=== PATIENT | male | born 1940 | race American Indian/Alaskan Native ===

== ENCOUNTER 2021-05-24 21:09 | Inpatient (IN) | payer MEDICARE ==
[2021-05-24] MEDS ORDERED: KETAMINE 500 MG/5 ML VIAL MDV ONE ×2 (21:15→21:47)
[2021-05-24] MEDS ORDERED: ROCURONIUM 50 MG/5 ML INJ IV ONE (21:16)
[2021-05-24] MEDS ORDERED: fentaNYL DRIP Premix 2,000 MCG/100 ML BAG IV ONE (21:21)
[2021-05-24] MEDS ORDERED: fentaNYL 100 MCG/2 ML INJ IV PRN (21:28)
[2021-05-24] MEDS ORDERED: SODIUM CHLORIDE 0.9% 1000 ML 1,000 ML IV ONE (21:28)
[2021-05-24] MEDS ORDERED: MIDAZOLAM 2 MG/2 ML INJ IV PRN (21:28)
[2021-05-24] MEDS ORDERED: KETAMINE 500 MG/5 ML VIAL MDV IV ONE (21:28)
[2021-05-24] MEDS ORDERED: MINERAL OIL/PETROLATUM, WHITE OPHTH OINT 3.5 GM OU PRN (21:28)
[2021-05-24] MEDS ORDERED: LIP THERAPY VASELINE TP PRN (21:28)
[2021-05-24] MEDS ORDERED: dexAMETHasone 4 MG/ML VIAL IV ONE (21:31)
[2021-05-24] MEDS ORDERED: LACTATED RINGERS 1,000 ML IV ONE ×3 (21:31→23:01)
[2021-05-24] MEDS ORDERED: cefTRIAXone/NS 1 GM/50 ML 1 GM/50 ML BAG IV ONE (21:31)
--- NOTE | 2021-05-24 21:34 | Emergency Department Report ---
ED General Adult HPI - General Chief complaint: Altered Mental Status Stated complaint: UNRESPONSIVE PUI?: Yes Time Seen by Provider: 05/24/21 21:27 Source: EMS (Verbal report received from emergency medical services. EMS documentation not available at time of chart dictation ), RN notes reviewed Mode of arrival: Stretcher - History of Present Illness Initial comments: The patient was evaluated in the emergency department for symptoms described in the history of present illness. He/she was evaluated in the context of the global COVID-19 pandemic, which necessitated consideration that the patient might be at risk for infection with the virus that causes COVID-19. Institutional protocols and algorithms that pertain to the evaluation of patients at risk for COVID-19 are in a state of rapid change based on information released by regulatory bodies including the CDC and federal and state organizations. These policies and algorithms were followed during the patient's care in the emergency department. Please note that these policies, procedures and recommendations changed on a rapid basis. The patient is a 80-year-old gentleman. He is not known to myself previously. He is brought to the hospital today by emergency medical services, with an EMS articulated complaint of altered mental status and respiratory failure. History obtained entirely from EMS as the patient is altered, and presents with acute respiratory failure. EMS arrives with discharge instructions/discharge paperwork from this patient, from the [facility]. Discharge diagnoses include urinary tract infection, and Lewy body dementia. Also has history of hypertension, and type II NSTEMI. The patient had a negative CT scan of the brain April 23, 2021, and also had CT angiogram of the head and neck which did not demonstrate significant large vessel occlusion. The patient also had a negative COVID-19 test. Discharge medications include allopurinol, atorvastatin, losartan, multivitamin, and metoprolol. The patient does not arrive with advanced directives or goals of care elucidated on his paperwork. He is furthermore not accompanied by friends or family at this time for collateral information or additional information. EMS reports normal Accu-Chek in the field. Upon arrival to this emergency room, the patient is in respiratory failure, and is not protecting his airway. The patient is intubated by myself. Please see procedure note. Patient not able to describe the qualitative nature of symptoms, exacerbating factors, relieving factors, or aggravating factors. Patient not accompanied by friends or family at this time for collateral information or additional information. No additional history is available at this time. -: unknown Quality: other Consistency: other Improves with: other Worsens with: other Associated Symptoms: other - Related Data Allergies Allergy/AdvReac Type Severity Reaction Status Date / Time No Known Allergies Allergy Verified 05/24/21 21:45 ED Review of Systems ROS: Stated complaint: UNRESPONSIVE Other details as noted in HPI Comment: Unobtainable due to pts medical conditions ED Physical Exam - General Limitations: Altered Mental Status General appearance: obtunded - Head Head exam: Present: atraumatic, normocephalic - Eye Eye exam: Present: normal appearance, EOMI - ENT ENT exam: Present: normal orophraynx, mucous membranes moist, normal external ear exam, other (Secretions noted in) - Neck Neck exam: Present: normal inspection. Absent: tenderness, meningismus - Respiratory Respiratory exam: Present: respiratory distress, decreased breath sounds. Absent: stridor - Cardiovascular Cardiovascular Exam: Present: regular rate, normal rhythm, normal heart sounds. Absent: bradycardia, tachycardia, irregular rhythm, systolic murmur, diastolic murmur, rubs, gallop - GI/Abdominal GI/Abdominal exam: Present: soft, hernia (There is a large right-sided inguinal hernia). Absent: distended, tenderness, guarding, rebound, rigid - Rectal Rectal exam: Present: normal inspection - exam: Absent: normal inspection (Right-sided inguinal hernia extending into the scrotum) - Extremities Exam Extremities exam: Present: normal inspection, other (2+ pulses noted in the bilateral femoral arteries, and bilateral radial artery). Absent: tenderness, pedal edema, calf tenderness - Back Exam Back exam: Present: normal inspection. Absent: tenderness, CVA tenderness (R), CVA tenderness (L), paraspinal tenderness, vertebral tenderness - Neurological Exam Neurological exam: Present: altered, other (Prior to intubation, patient moving 4 extremities. The patient is nonverbal) - Skin Skin exam: Present: warm, dry, intact, normal color. Absent: rash ED Course Vital Signs 05/24/21 05/24/21 05/24/21 21:22 21:27 21:31 Temperature 96.7 F L Pulse Rate 89 95 H 91 H Respiratory 17 22 18 Rate Blood Pressure 102/70 78/53 O2 Sat by Pulse 76 L 96 Oximetry 05/24/21 05/24/21 05/24/21 21:45 22:01 22:15 Temperature Pulse Rate 93 H 84 71 Respiratory 19 20 17 Rate Blood Pressure 82/55 80/47 94/57 O2 Sat by Pulse 86 100 Oximetry 05/24/21 05/24/21 22:45 22:50 Temperature Pulse Rate 81 Respiratory 20 Rate Blood Pressure 68/43 O2 Sat by Pulse 85 97 Oximetry - Reevaluation(s) Reevaluation #1: 05/24/21 22:18 Differential diagnosis, including but not limited to: Pneumonia, urinary tract infection, COVID-19, respiratory failure, toxic encephalopathy, metabolic encephalopathy Assessment and plan: 80-year-old gentleman with encephalopathy, last known well time not known, had CT angiogram of the head and neck within the past month, which was negative for large vessel occlusion, moving 4 extremities prior to intubation, saturating at 70s prior to intubation, with acute respiratory failure. Patient now intubated and sedated. Laboratory studies pending. Noncontrast CT scan of the brain, CT scan of the chest pending. Place patient on isolation. Continue fluids, start antibiotics, and steroids empirically. Admit the patient to the critical care unit once his initial diagnostics have resulted. Long-term prognosis is guarded 05/24/21 22:39 Laboratory studies demonstrate lactic acidosis, elevated CK, elevated sodium/hypernatremia, elevated troponin, likely type II troponin leak, renal insufficiency, and hyperchloremia. Patient is most likely very volume depleted. He will continue to receive IV fluids. We will discuss with nephrology on-call. 05/24/21 23:02 Laboratory studies reviewed and appreciated. Azotemia, uremia, metabolic acidosis. Patient most likely has uremic encephalopathy. Additional IV fluids ordered. Noncontrast CT scan of the brain, CT scan of the chest interpretations are reviewed and appreciated. Sanchez catheter placed, draining urine. Blood pressure 95 systolic at this time. Hospital physician, Dr. Will Soliman to admit to ICU - Consultations Consultation #1: 05/24/21 22:20 Contacted critical care physician, Dr. Matt Mckinley Discussed the patient's history, physical, clinical impression, and overall plan of care. He is in agreement with the plan of care, and advises that this patient may be admitted to the critical care unit, where his group will follow in consultation. Consultation #2: 05/24/21 22:47 Discussed history, physical, pertinent laboratory studies with nephrology on- call, Dr. Alycia Altamirano His group will follow in consultation. He is in agreement with the plan of care. Also recommends D5 half-normal to assist in correcting hypernatremia. - EJ/Peripheral Line Neck R Time Out Performed: No (Emergency situation) Indications: multiple IV sites needed Skin Cleansed in Sterile Fashion: Yes Size: 18 Dressing Placed: Tegaderm Patient Tolerated Procedure: well - Intubation Time Out Performed: No (Emergency situation) Sedative: Ketamine Mg Given: 100 Laryngoscope: fiberoptic video scope ET Tube Size: 7.5 Tube Secured Depth (cm): 23 Tube Secured Location: teeth Tube Placement Confirmation: visualized tube passing t, equal breath sounds bilat, no breath sounds over epi, confirmation by capnometr Patient Tolerated Procedure: well Intubation Complications: none Additional Comments: Patient placed on nasal cannula at 15 L/min. He receives olt-[id number]-dhyi ventilation. Video laryngoscopy performed, trachea and vocal cords are easily visualized. Bougie catheter inserted under direct visual guidance through the trachea, and a 7.5 endotracheal tube was then inserted over the bougie catheter, and is directly visualized to pass into the trachea. Power Grader Operator balloon is inflated, and post intubation verification indicates appropriate tube placement. ED Medical Decision Making - Lab Data Result diagrams: 05/24/21 21:37 05/24/21 21:37 Vital Signs 05/24/21 05/24/21 21:27 21:31 Temperature 96.7 F L Pulse Rate 95 H Respiratory 22 Rate Blood Pressure 102/70 O2 Sat by Pulse 76 L 96 Oximetry Lab Results 05/24/21 05/24/21 Range/Units 21:14 21:37 [place] % (Auto) 4.4 (0.0-7.3) % Eos % (Auto) 0.1 (0.0-4.3) % [place] # (Auto) 0.6 (0.0-0.8) K/mm3 Eos # (Auto) 0.0 (0.0-0.4) K/mm3 Baso # (Auto) 0.1 (0.0-0.1) K/mm3 Seg Neutrophils % 88.7 H (40.0-70.0) % Seg Neutrophils # 11.0 H (1.8-7.7) K/mm3 POC Glucose 109 H (70-105) mg/dL Labs 05/24/21 05/24/21 05/24/21 21:14 21:37 21:37 WBC 12.4 H RBC 4.80 Hgb 13.9 Hct 46.1 H MCV 96 H MCH 29 MCHC 30 L RDW 15.4 H Plt Count 123 L Lymph % (Auto) 6.3 L [place] % (Auto) 4.4 Eos % (Auto) 0.1 Baso % (Auto) 0.5 Lymph # (Auto) 0.8 L [place] # (Auto) 0.6 Eos # (Auto) 0.0 Baso # (Auto) 0.1 Seg Neutrophils % 88.7 H Seg Neutrophils # 11.0 H PT 14.2 INR 0.99 APTT 20.0 L D-Dimer 2504.89 H Sodium Potassium Chloride Carbon Dioxide Anion Gap Creatinine Estimated GFR Glucose POC Glucose 109 H Lactic Acid Calcium Ferritin Total Bilirubin AST ALT Alkaline Phosphatase Lactate Dehydrogenase Total Creatine Kinase Troponin T C-Reactive Protein Total Protein Albumin Albumin/Globulin Ratio Salicylates Acetaminophen Plasma/Serum Alcohol 05/24/21 05/24/21 05/24/21 21:37 21:37 21:37 WBC RBC Hgb Hct MCV MCH MCHC RDW Plt Count Lymph % (Auto) [place] % (Auto) Eos % (Auto) Baso % (Auto) Lymph # (Auto) [place] # (Auto) Eos # (Auto) Baso # (Auto) Seg Neutrophils % Seg Neutrophils # PT INR APTT D-Dimer Sodium 167 H* Potassium 5.3 H Chloride 130.9 H Carbon Dioxide 19 L Anion Gap 22 Creatinine 4.6 H Estimated GFR 15 Glucose 122 H POC Glucose Lactic Acid 3.90 H* Calcium 10.5 H Ferritin 202.6 Total Bilirubin 0.60 AST 52 H ALT 43 Alkaline Phosphatase 119 Lactate Dehydrogenase 275 H Total Creatine Kinase Troponin T 0.199 H* C-Reactive Protein 0.80 Total Protein 7.0 Albumin 3.2 L Albumin/Globulin Ratio 0.8 Salicylates Acetaminophen Plasma/Serum Alcohol 05/24/21 05/24/21 05/24/21 21:37 21:37 21:37 WBC RBC Hgb Hct MCV MCH MCHC RDW Plt Count Lymph % (Auto) [place] % (Auto) Eos % (Auto) Baso % (Auto) Lymph # (Auto) [place] # (Auto) Eos # (Auto) Baso # (Auto) Seg Neutrophils % Seg Neutrophils # PT INR APTT D-Dimer Sodium Potassium Chloride Carbon Dioxide Anion Gap Creatinine Estimated GFR Glucose POC Glucose Lactic Acid Calcium Ferritin Total Bilirubin AST ALT Alkaline Phosphatase Lactate Dehydrogenase Total Creatine Kinase Troponin T C-Reactive Protein Total Protein Albumin Albumin/Globulin Ratio Salicylates < 0.3 L Acetaminophen 5.0 L Plasma/Serum Alcohol < 0.01 05/24/21 21:37 WBC RBC Hgb Hct MCV MCH MCHC RDW Plt Count Lymph % (Auto) [place] % (Auto) Eos % (Auto) Baso % (Auto) Lymph # (Auto) [place] # (Auto) Eos # (Auto) Baso # (Auto) Seg Neutrophils % Seg Neutrophils # PT INR APTT D-Dimer Sodium Potassium Chloride Carbon Dioxide Anion Gap Creatinine Estimated GFR Glucose POC Glucose Lactic Acid Calcium Ferritin Total Bilirubin AST ALT Alkaline Phosphatase Lactate Dehydrogenase Total Creatine Kinase 1396 H Troponin T C-Reactive Protein Total Protein Albumin Albumin/Globulin Ratio Salicylates Acetaminophen Plasma/Serum Alcohol - EKG Data -: EKG Interpreted by Or EKG shows normal: sinus rhythm Rate: normal - EKG Data When compared to previous EKG there are: previous EKG unavailable 05/24/21 22:13 The EKG is interpreted at 21: 33 Sinus rhythm, 95 bpm. Normal axis, QTC 42 ms. Left ventricular hypertrophy. There is a normal axis. There is a normal P wave axis. There is atrial enlargement. Nonspecific ST abnormality. This is an abnormal EKG. This is not a STEMI. - Radiology Data Radiology results: pending, report reviewed, image reviewed CHEST 1 VIEW INDICATION / CLINICAL INFORMATION: ETT placement. COMPARISON: None available. FINDINGS: SUPPORT DEVICES: Endotracheal tube noted approximately 2 cm above the lauren. HEART / MEDIASTINUM: No significant abnormality. LUNGS / PLEURA: No significant pulmonary or pleural abnormality. No pneumothorax. ADDITIONAL FINDINGS: No significant additional findings. IMPRESSION: 1. No acute findings. 2. Endotracheal tube with tip approximately 2 cm above the lauren. Signer Name: Lane Wagner MD Signed: 05/24/2021 8:47 PM Workstation Name: [id number] CT HEAD WITHOUT CONTRAST INDICATION / CLINICAL INFORMATION: Altered Mental S tatus. TECHNIQUE: All CT scans at this location are performed using CT dose reduction for ALARA by means of automated exposure control. COMPARISON: None available. FINDINGS: There is diffuse cerebral atrophy. Diffuse areas of low- attenuation in the periventricular and central white matter. No acute hemorrhage. Significant motion artifact throughout the examination. Orbits appear normal. ADDITIONAL FINDINGS: None. IMPRESSION: 1. Limited examination due to movement. There is diffuse low-attenuation periventricular and central white matter. Fines could represent chronic small vessel disease however underlying ischemia cannot be excluded. MRI could be performed if indicated. 2. Diffuse cerebral atrophy Signer Name: Ravindra Cho MD Signed: 05/24/2021 9:54 PM Workstation Name: [id number] CT CHEST WITHOUT CONTRAST INDICATION / CLINICAL INFORMATION: Acute respiratory failure. TECHNIQUE: Axial CT images were obtained through the chest without contrast. All CT scans at this location are performed using CT dose reduction for ALARA by means of automated exposure control. COMPARISON: None available. FINDINGS: Patient is intubated. Pulmonary cyst in the left. There is increased density along the fissure within the right lung. Calcified granulomas noted. No pneumothorax is seen. Atherosclerotic changes seen throughout the aorta and coronary vessels. Multiple large renal cyst cyst within the upper abdomen. Gallstones are noted within the gallbladder. No acute bone findings are seen. Elevation of the right hemidiaphragm. Some atelectasis in density within the right suprahilar region IMPRESSION: 1. There is increased density in the right suprahilar region with calcified granuloma and several mildly prominent suprahilar nodes. There is atelectasis extending to the right upper lung along the fissure. A follow-up examination is recommended to exclude underlying adenop athy or nodule. 2. Atherosclerotic changes of aorta and coronary vessels. 3. Multiple renal cysts of varying sizes. 4. Cholelithiasis. Signer Name: Ravindra Cho MD Signed: 05/24/2021 9:51 PM Workstation Name: [id number] Critical Care Time: Yes Critical care time in (mins) excluding proc time.: 45 Critical care attestation.: If time is entered above; I have spent that time in minutes in the direct care of this critically ill patient, excluding procedure time. ED Disposition Clinical Impression: Acute encephalopathy, Acute respiratory failure, Elevated CK, SIRS (systemic inflammatory response syndrome), Renal insufficiency, Hypernatremia, Dehydration Disposition: 09 ADMITTED INPATIENT Is pt being admited?: Yes Does the pt Need Aspirin: No Condition: Critical Referrals: PRIMARY CARE, [Primary Care Provider] - 3-5 Days
--- NOTE | 2021-05-24 21:51 | XRay Report ---
CHEST 1 VIEW INDICATION / CLINICAL INFORMATION: ETT placement. COMPARISON: None available. FINDINGS: SUPPORT DEVICES: Endotracheal tube noted approximately 2 cm above the lauren. HEART / MEDIASTINUM: No significant abnormality. LUNGS / PLEURA: No significant pulmonary or pleural abnormality. No pneumothorax. ADDITIONAL FINDINGS: No significant additional findings. IMPRESSION: 1. No acute findings. 2. Endotracheal tube with tip approximately 2 cm above the lauren. Signer Name: Lane Wagner MD Signed: 05/24/2021 9:47 PM Workstation Name: [email or web address]
[2021-05-24] MEDS ORDERED: fentaNYL DRIP Premix 2,000 MCG/100 ML BAG IV SCH (22:00)
[2021-05-24] MEDS ORDERED: MIDAZOLAM 100 MG in SODIUM CHLORIDE 0.9% 80 ML IV SCH (22:00)
[2021-05-24] MEDS ORDERED: FAMOTIDINE 20 MG/2 ML INJ IV SCH (22:00)
[2021-05-24 22:07] LABS: Basophils # (Auto) 0.1 K/mm3 (0.0-0.1); Basophils % (Auto) 0.5 % (0.0-1.8); Eosinophils % (Auto) 0.1 % (0.0-4.3); Lymphocytes # (Auto) 0.8 K/mm3 (1.2-5.4); Lymphocytes % (Auto) 6.3 % (13.4-35.0); Mean Corpuscular HGB Conc 30 % (32-34); Mean Corpuscular Volume 96 fl (84-94); Monocytes # (Auto) 0.6 K/mm3 (0.0-0.8); Monocytes % (Auto) 4.4 % (0.0-7.3); Red Cell Distribution Width 15.4 % (13.2-15.2)
[2021-05-24 22:17] LABS: INR 0.99 (0.87-1.13)
[2021-05-24 22:25] LABS: Hematocrit 46.1 % (35.5-45.6); Hemoglobin 13.9 gm/dl (11.8-15.2); Platelet Count 123 K/mm3 (140-440)
[2021-05-24 22:33] LABS: Albumin 3.2 g/dL (3.9-5); C-Reactive Protein 0.8 mg/dL (0.00-1.30); Calcium 10.5 mg/dL (8.4-10.2)
[2021-05-24 22:51] LABS: Chol/HDL Ratio 2.6 %
--- NOTE | 2021-05-24 22:56 | Cat Scan Report ---
CT CHEST WITHOUT CONTRAST INDICATION / CLINICAL INFORMATION: Acute respiratory failure. TECHNIQUE: Axial CT images were obtained through the chest without contrast. All CT scans at this location are p erformed using CT dose reduction for ALARA by means of automated exposure control. COMPARISON: None available. FINDINGS: Patient is intubated. Pulmonary cyst in the left. There is increased density along the fissure within the right lung. Calcified granulomas noted. No pneumothorax is seen. Atherosclerotic changes seen th roughout the aorta and coronary vessels. Multiple large renal cyst cyst within the upper abdomen. Gal lstones are noted within the gallbladder. No acute bone findings are seen. Elevation of the right hem idiaphragm. Some atelectasis in density within the right suprahilar region IMPRESSION: 1. There is increased density in the right suprahilar region with calcified granuloma and several mil dly prominent suprahilar nodes. There is atelectasis extending to the right upper lung along the fiss ure. A follow-up examination is recommended to exclude underlying adenopathy or nodule. 2. Atherosclerotic changes of aorta and coronary vessels. 3. Multiple renal cysts of varying sizes. 4. Cholelithiasis. Signer Name: Ravindra Cho MD Signed: 05/24/2021 10:51 PM Workstation Name: [id number]
--- NOTE | 2021-05-24 22:58 | Cat Scan Report ---
CT HEAD WITHOUT CONTRAST INDICATION / CLINICAL INFORMATION: Altered Mental Status. TECHNIQUE: All CT scans at this location are performed using CT dose reduction for ALARA by means of automated e xposure control. COMPARISON: None available. FINDINGS: There is diffuse cerebral atrophy. Diffuse areas of low-attenuation in the periventricular and centra l white matter. No acute hemorrhage. Significant motion artifact throughout the examination. Orbits a ppear normal. ADDITIONAL FINDINGS: None. IMPRESSION: 1. Limited examination due to movement. There is diffuse low-attenuation periventricular and central white matter. Fines could represent chronic small vessel disease however underlying ischemia cannot b e excluded. MRI could be performed if indicated. 2. Diffuse cerebral atrophy Signer Name: Ravindra Cho MD Signed: 05/24/2021 10:54 PM Workstation Name: [id number]
[2021-05-24] MEDS ORDERED: D5W/0.45% NACL 1,000 ML IV SCH (23:00)
[2021-05-24] MEDS ORDERED: MAGNESIUM HYDROXIDE (MOM) ORAL LIQD UDC PO PRN (23:27)
[2021-05-24] MEDS ORDERED: MORPHINE 4 MG/1 ML INJ IV PRN (23:27)
[2021-05-24] MEDS ORDERED: ONDANSETRON 4 MG/2 ML INJ IV PRN (23:27)
[2021-05-24] MEDS ORDERED: ACETAMINOPHEN 650 MG RECT SUPP PR PRN (23:27)
[2021-05-24] MEDS ORDERED: MORPHINE 2 MG/1 ML INJ IV PRN (23:27)
--- NOTE | 2021-05-24 23:40 | History and Physical Report ---
History of Present Illness Date of examination: 05/24/21 Date of admission: 05/24/2021 Chief complaint: Altered mental status Respiratory failure History of present illness: 80-year-old -[place] male with known history of Lewy body dementia and hypertension who resides in a personal [facility] was brought into the emergency room today by EMS for changes in mental status and respiratory failure. History was obtained from the ER staff as patient is already intubated and sedated. Patient was said to have been seen at the [place] facility sometime in March 31. Printed discharge papers that came with him indicates a urinary tract infection and Lewy body dementia. During the visit in March [address] of the brain and CT angiogram of the head and neck which did not reveal any acute abnormality. He also had a negative COVID-19 test at that time. List of medications includes allopurinol, atorvastatin, losartan, multivitamin and metoprolol. Upon arrival in the emergency room patient was not protecting his airway and was subsequently intubated. Work-up so far in the emergency room, significant findings were that of leukocytosis of 12.4, sodium of 167, potassium of 5.3, BUN of 121 and creatinine of 4.6. Lactic acidosis of 3.9 troponin of 0.199 and creatinine kinase of 1396. Chest x-ray, CT of the head and CT of the chest did not reveal any acute findings. Litigation Services Manager and food service supervisor has been consulted and updated on patient's condition by the ER physician. Past History Past Medical History: hypertension, other (Lewy body dementia, history of NSTEMI, history of recent UTI) Past Surgical History: Other (Unobtainable) Social history: other (Lives in a personal ch[facility]) Family history: other (Unobtainable) Medications and Allergies Allergies Allergy/AdvReac Type Severity Reaction Status Date / Time No Known Allergies Allergy Verified 05/24/21 21:45 Active Meds: Active Medications Acetaminophen (Acetaminophen 650 Mg Rect Supp) 650 mg AR Q6H PRN PRN Reason: Pain MILD(1-3)/Fever >100.5/VALADEZ Famotidine (Famotidine 20 Mg/2 Ml Inj) 20 mg IV BID PABLO Fentanyl (Fentanyl 100 Mcg/2 Ml Inj) 50 mcg IV Q10MIN PRN PRN Reason: ANALGESIA Heparin Sodium (Porcine) (Heparin 5,000 Unit/1 Ml Vial) 5,000 unit SUB-Q Q8HR PABLO Hydrophilic Ointment (Lip Therapy Vaseline) 1 applic TP Q2HR PRN PRN Reason: Dry Lips Fentanyl Citrate (Fentanyl Drip Premix) 2,000 mcg in 100 mls @ 2.25 mls/hr IV TITR PABLO; Protocol Last Titration: 05/24/21 21:54 Dose: 1.78 mcg/kg/hr, 4 mls/hr Documented by: Midazolam HCl 100 mg/ Sodium (Chloride) 100 mls @ 2 mls/hr IV TITR PABLO; Protocol Last Admin: 05/24/21 21:27 Dose: 2 mg/hr, 2 mls/hr Documented by: Dextrose/Sodium Chloride (D5/0.45ns) 1,000 mls @ 75 mls/hr IV DIRECT PABLO Last Admin: 05/24/21 23:25 Dose: 75 mls/hr Documented by: Lactated Ringer's (Lactated Ringers) 1,000 mls @ 999 mls/hr IV BOLUS ONE Stop: 05/24/21 23:46 Last Admin: 05/24/21 23:25 Dose: 999 mls/hr Documented by: Lactated Ringer's (Lactated Ringers) 1,000 mls @ 999 mls/hr IV BOLUS ONE Stop: 05/25/21 00:01 Magnesium Hydroxide (Magnesium Hydroxide (Mom) Oral Liqd Udc) 30 ml PO Q4H PRN PRN Reason: Constipation Midazolam HCl (Midazolam 2 Mg/2 Ml Inj) 2 mg IV Q10MIN PRN PRN Reason: Sedation Morphine Sulfate (Morphine 2 Mg/1 Ml Inj) 2 mg IV Q4H PRN PRN Reason: Pain, Moderate (4-6) Morphine Sulfate (Morphine 4 Mg/1 Ml Inj) 4 mg IV Q4H PRN PRN Reason: Pain , Severe (7-10) Multi-Ingred Cream/Lotion/Oil/Oint (Mineral Oil/Petrolatum, White Ophth Oint 3.5 Gm) 1 applic OU Q4HR PRN PRN Reason: Dry Eye(s) Ondansetron HCl (Ondansetron 4 Mg/2 Ml Inj) 4 mg IV Q8H PRN PRN Reason: Nausea And Vomiting Senna/Docusate Sodium (Sennosides/Docusate Sodium 8.6/50 Mg Tab) 1 tab FEEDTUBE BID PABLO Sodium Chloride (Sodium Chloride 0.9% 10 Ml Flush Syringe) 10 ml IV BID PABLO Sodium Chloride (Sodium Chloride 0.9% 10 Ml Flush Syringe) 10 ml IV PRN PRN PRN Reason: LINE FLUSH Review of Systems ROS unobtainable: due to endotracheal tube Exam - Constitutional Vitals: Temp Pulse Resp BP Pulse Ox 96.7 F L 81 20 68/43 97 05/24/21 21:27 05/24/21 22:45 05/24/21 22:45 05/24/21 22:45 05/24/21 22:50 General appearance: Present: other (Currently intubated and sedated, dry oral mucosa) - EENT Eyes: Present: PERRL, EOM intact. Absent: scleral icterus ENT: hearing intact, clear oral mucosa, dentition normal - Neck Neck: Present: supple, normal ROM - Respiratory Respiratory effort: normal Respiratory: bilateral: CTA - Cardiovascular Rhythm: regular Heart Sounds: Present: S1 & S2. Absent: gallop, systolic murmur, diastolic murmur, rub, click - Extremities Extremities: no ischemia, pulses intact, pulses symmetrical, No edema, normal temperature, normal color, Full ROM Peripheral Pulses: within normal limits - Abdominal General gastrointestinal: Present: soft, non-tender, non-distended, normal bowel sounds. Absent: mass - Musculoskeletal Musculoskeletal: strength equal bilaterally - Psychiatric Psychiatric: cooperative - Neurologic Neurologic: other (Currently intubated and sedated) HEART Score - HEART Score Troponin: Troponin T 0.199 ng/mL (0.00-0.029) H* 05/24/21 21:37 Results - Labs CBC & Chem 7: 05/24/21 21:37 05/24/21 21:37 Labs: Abnormal lab results 05/24/21 05/24/21 05/24/21 Range/Units 21:14 21:37 21:37 WBC 12.4 H (4.5-11.0) K/mm3 Hct 46.1 H (35.5-45.6) % MCV 96 H (84-94) fl MCHC 30 L (32-34) % RDW 15.4 H (13.2-15.2) % Plt Count 123 L (140-440) K/mm3 Lymph % (Auto) 6.3 L (13.4-35.0) % Lymph # (Auto) 0.8 L (1.2-5.4) K/mm3 Seg Neutrophils % 88.7 H (40.0-70.0) % Seg Neutrophils # 11.0 H (1.8-7.7) K/mm3 APTT 20.0 L (24.2-36.6) Sec. D-Dimer 2504.89 H (0-234) ng/mlDDU Sodium (137-145) mmol/L Potassium (3.6-5.0) mmol/L Chloride (98-107) mmol/L Carbon Dioxide (22-30) mmol/L BUN (9-20) mg/dL Creatinine (0.8-1.3) mg/dL Glucose (75-100) mg/dL POC Glucose 109 H (70-105) mg/dL Lactic Acid (0.7-2.0) mmol/L Calcium (8.4-10.2) mg/dL AST (5-40) units/L Lactate Dehydrogenase (91-180) units/L Total Creatine Kinase (55-170) units/L Troponin T (0.00-0.029) ng/mL Albumin (3.9-5) g/dL LDL Cholesterol Direct (50-130) mg/dL HDL Cholesterol (40-59) mg/dL Salicylates (2.8-20.0) mg/dL Acetaminophen (10.0-30.0) ug/mL 05/24/21 05/24/21 05/24/21 Range/Units 21:37 21:37 21:37 WBC (4.5-11.0) K/mm3 Hct (35.5-45.6) % MCV (84-94) fl MCHC (32-34) % RDW (13.2-15.2) % Plt Count (140-440) K/mm3 Lymph % (Auto) (13.4-35.0) % Lymph # (Auto) (1.2-5.4) K/mm3 Seg Neutrophils % (40.0-70.0) % Seg Neutrophils # (1.8-7.7) K/mm3 APTT (24.2-36.6) Sec. D-Dimer (0-234) ng/mlDDU Sodium 167 H* (137-145) mmol/L Potassium 5.3 H (3.6-5.0) mmol/L Chloride 130.9 H (98-107) mmol/L Carbon Dioxide 19 L (22-30) mmol/L BUN 121 H (9-20) mg/dL Creatinine 4.6 H (0.8-1.3) mg/dL Glucose 122 H (75-100) mg/dL POC Glucose (70-105) mg/dL Lactic Acid 3.90 H* (0.7-2.0) mmol/L Calcium 10.5 H (8.4-10.2) mg/dL AST 52 H (5-40) units/L Lactate Dehydrogenase 275 H (91-180) units/L Total Creatine Kinase (55-170) units/L Troponin T 0.199 H* (0.00-0.029) ng/mL Albumin 3.2 L (3.9-5) g/dL LDL Cholesterol Direct 41 L (50-130) mg/dL HDL Cholesterol 35 L (40-59) mg/dL Salicylates < 0.3 L (2.8-20.0) mg/dL Acetaminophen (10.0-30.0) ug/mL 05/24/21 05/24/21 Range/Units 21:37 21:37 WBC (4.5-11.0) K/mm3 Hct (35.5-45.6) % MCV (84-94) fl MCHC (32-34) % RDW (13.2-15.2) % Plt Count (140-440) K/mm3 Lymph % (Auto) (13.4-35.0) % Lymph # (Auto) (1.2-5.4) K/mm3 Seg Neutrophils % (40.0-70.0) % Seg Neutrophils # (1.8-7.7) K/mm3 APTT (24.2-36.6) Sec. D-Dimer (0-234) ng/mlDDU Sodium (137-145) mmol/L Potassium (3.6-5.0) mmol/L Chloride (98-107) mmol/L Carbon Dioxide (22-30) mmol/L BUN (9-20) mg/dL Creatinine (0.8-1.3) mg/dL Glucose (75-100) mg/dL POC Glucose (70-105) mg/dL Lactic Acid (0.7-2.0) mmol/L Calcium (8.4-10.2) mg/dL AST (5-40) units/L Lactate Dehydrogenase (91-180) units/L Total Creatine Kinase 1396 H (55-170) units/L Troponin T (0.00-0.029) ng/mL Albumin (3.9-5) g/dL LDL Cholesterol Direct (50-130) mg/dL HDL Cholesterol (40-59) mg/dL Salicylates (2.8-20.0) mg/dL Acetaminophen 5.0 L (10.0-30.0) ug/mL Assessment and Plan - Patient Problems (1) Acute respiratory failure Current Visit: Yes Status: Acute Plan to address problem: Etiology is unclear. Patient is currently intubated and sedated. Consult placed to special events planner for further evaluation and recommendations. (2) Acute encephalopathy Current Visit: Yes Status: Acute Plan to address problem: Possibly metabolic. Patient commenced on IV fluid and will be closely monitored in the intensive care unit. (3) Dehydration Current Visit: Yes Status: Acute Plan to address problem: Patient placed on IV fluid. Will monitor BUN and creatinine. Nephrology is consulted for evaluation and recommendations. (4) Elevated CK Current Visit: Yes Status: Acute Plan to address problem: We will continue on IV fluid hydration monitor CK levels. (5) Hypernatremia Current Visit: Yes Status: Acute (6) Renal insufficiency Current Visit: Yes Status: Acute Plan to address problem: Possibly prerenal. Patient placed on IV fluid. Will monitor BUN and creatinine. We will awaits further evaluation by nephrology. (7) SIRS (systemic inflammatory response syndrome) Current Visit: Yes Status: Acute Plan to address problem: Patient has no obvious source of infection. However he has been placed on empiric IV antibiotics. (8) DVT prophylaxis Current Visit: Yes Status: Acute Plan to address problem: Patient placed on subcutaneous heparin. (9) Full code status Current Visit: Yes Status: Acute Plan to address problem: Patient is full code.
[2021-05-25] MEDS: SENNOSIDES/DOCUSATE SODIUM 8.6/50 MG TAB FEEDTUBE SCH ×3 (01:11→22:00)
[2021-05-25 02:27] LABS: ABG Base Excess -2.9 mmol/L (-2.0-3.0); ABG HCO3 18.7 mmol/L (20.0-26.0); ABG Methemoglobin 0.4 % (0.0-1.5); ABG Oxygen Saturation 99.6 % (95.0-99.0); ABG PCO2 22.7 mm Hg; ABG PH 7.533 pH Units (7.350-7.450)
[2021-05-25 03:00] LABS: Bacteria,Urine 1+ /HPF (Negative); Bilirubin,Urine NEG (Negative); Blood,Urine SM (Negative); Color,Urine Yellow (Yellow); Hyaline Casts,Urine 1 /LPF; Mucus,Urine FEW /HPF; Urobilinogen,Urine < 2.0 mg/dL (<2.0)
[2021-05-25 05:13] LABS: Hematocrit 36.7 % (35.5-45.6); Hemoglobin 11.2 gm/dl (11.8-15.2); Mean Corpuscular HGB Conc 31 % (32-34); Mean Corpuscular Volume 94 fl (84-94); Platelet Count 112 K/mm3 (140-440); Red Blood Count 3.92 M/mm3 (3.65-5.03); Red Cell Distribution Width 15.1 % (13.2-15.2)
[2021-05-25 05:25] LABS: INR 1.13 (0.87-1.13)
[2021-05-25 05:36] LABS: Calcium 9.1 mg/dL (8.4-10.2)
[2021-05-25 06:38] LABS: ABG Base Excess -2.3 mmol/L (-2.0-3.0); ABG HCO3 20.2 mmol/L (20.0-26.0); ABG Methemoglobin 0.5 % (0.0-1.5); ABG Oxygen Saturation 98.6 % (95.0-99.0); ABG PCO2 30.1 mm Hg; ABG PH 7.445 pH Units (7.350-7.450); ABG PO2 128.1 mm Hg (80.0-90.0)
[2021-05-25] MEDS: HEPARIN 5,000 UNIT/1 ML VIAL SUB-Q SCH ×3 (06:56→21:37)
[2021-05-25 07:45] LABS: Total Cells Counted 100
[2021-05-25 07:46] LABS: Anisocytosis 1+; Large Platelets Few; Platelet Estimate Consistent w Auto
[2021-05-25] MEDS ORDERED: DEXTROSE 5% IN WATER 1,000 ML IV SCH (10:00)
[2021-05-25] MEDS ORDERED: LIPASE 10,500/PROTEASE 25,000/AMYLASE 43,750 (UNITS) DR CAP FEEDTUBE PRN (10:40)
[2021-05-25] MEDS ORDERED: SIMPLE SYRUP 15 ML FEEDTUBE PRN ×2 (10:40)
[2021-05-25] MEDS ORDERED: SODIUM BICARBONATE 325 MG TAB FEEDTUBE PRN (10:40)
--- NOTE | 2021-05-25 12:33 | Consultation ---
History of Present Illness - Reason for Consult Consult date: 05/25/21 acute renal failure - History of Present Illness 80-year-old man with known history of Lewy body dementia and hypertension who resides in a personal m[facility] was brought into the emergency room by EMS for changes in mental status and respiratory failure. HPI obtained from chart review as patient is intubated, sedated. Patient was said to have been seen at the [place] facility sometime in March 2021, printed discharge papers noted urinary tract infection and Lewy body dementia. In ED, noted to have leukocytosis of 12. 4, sodium of 167, potassium of 5.3, BUN of 121 and creatinine of 4.6. Lactic acidosis of 3.9 troponin of 0.199 and creatinine kinase of 1396. Chest x-ray, CT of the head and CT of the chest did not reveal any acute findings. Past History Past Medical History: hypertension, other (Lewy body dementia, history of NSTEMI, history of recent UTI) Past Surgical History: Other (Unobtainable) Social history: other (Lives in a personal mcc) Family history: other (Unobtainable) Medications and Allergies Allergies Allergy/AdvReac Type Severity Reaction Status Date / Time No Known Allergies Allergy Verified 05/24/21 21:45 Active Meds: Active Medications Acetaminophen (Acetaminophen 650 Mg Rect Supp) 650 mg AL Q6H PRN PRN Reason: Pain MILD(1-3)/Fever >100.5/VAL[place]Z Lipase/Protease/Amylase (Lipase 10,500/Protease 25,000/Amylase 43,750 (Units) Dr Cap) 1 each FEEDTUBE PRN PRN PRN Reason: For Clogged Feeding Tube Famotidine (Famotidine 20 Mg/2 Ml Inj) 20 mg IV DAILY@2200 PABLO Fentanyl (Fentanyl 100 Mcg/2 Ml Inj) 50 mcg IV Q10MIN PRN PRN Reason: ANALGESIA Heparin Sodium (Porcine) (Heparin 5,000 Unit/1 Ml Vial) 5,000 unit SUB-Q Q8HR PABLO Last Admin: 05/25/21 06:56 Dose: 5,000 unit Documented by: Hydrophilic Ointment (Lip Therapy Vaseline) 1 applic TP Q2HR PRN PRN Reason: Dry Lips Fentanyl Citrate (Fentanyl Drip Premix) 2,000 mcg in 100 mls @ 2.25 mls/hr IV TITR PABLO; Protocol Last Titration: 05/25/21 04:34 Dose: 1 mcg/kg/hr, 2.25 mls/hr Documented by: Midazolam HCl 100 mg/ Sodium (Chloride) 100 mls @ 2 mls/hr IV TITR [facility]; Protocol Last Titration: 05/25/21 04:32 Dose: 1 mg/hr, 1 mls/hr Documented by: Ceftriaxone Sodium (Rocephin/Ns 2 Gm/100 Ml) 2 gm in 100 mls @ 200 mls/hr IV Q24H PABLO; Protocol Dextrose (D5w) 1,000 mls @ 75 mls/hr IV DIRECT PABLO Last Admin: 05/25/21 10:35 Dose: 75 mls/hr Documented by: Magnesium Hydroxide (Magnesium Hydroxide (Mom) Oral Liqd Udc) 30 ml PO Q4H PRN PRN Reason: Constipation Midazolam HCl (Midazolam 2 Mg/2 Ml Inj) 2 mg IV Q10MIN PRN PRN Reason: Sedation Morphine Sulfate (Morphine 2 Mg/1 Ml Inj) 2 mg IV Q4H PRN PRN Reason: Pain, Moderate (4-6) Morphine Sulfate (Morphine 4 Mg/1 Ml Inj) 4 mg IV Q4H PRN PRN Reason: Pain , Severe (7-10) Multi-Ingred Cream/Lotion/Oil/Oint (Mineral Oil/Petrolatum, White Ophth Oint 3.5 Gm) 1 applic OU Q4HR PRN PRN Reason: Dry Eye(s) Ondansetron HCl (Ondansetron 4 Mg/2 Ml Inj) 4 mg IV Q8H PRN PRN Reason: Nausea And Vomiting Senna/Docusate Sodium (Sennosides/Docusate Sodium 8.6/50 Mg Tab) 1 tab FEEDTUBE BID [facility] Last Admin: 05/25/21 01:11 Dose: Not Given Documented by: Simple Syrup (Simple Syrup 15 Ml) 15 ml FEEDTUBE PRN PRN PRN Reason: Hypoglycemia Simple Syrup (Simple Syrup 15 Ml) 30 ml FEEDTUBE PRN PRN PRN Reason: Hypoglycemia Sodium Bicarbonate (Sodium Bicarbonate 325 Mg Tab) 325 mg FEEDTUBE PRN PRN PRN Reason: For Clogged Feeding Tube Sodium Chloride (Sodium Chloride 0.9% 10 Ml Flush Syringe) 10 ml IV BID [facility] Last Admin: 05/25/21 10:36 Dose: 10 ml Documented by: Sodium Chloride (Sodium Chloride 0.9% 10 Ml Flush Syringe) 10 ml IV PRN PRN PRN Reason: LINE FLUSH Review of Systems ROS unobtainable: due to mental status Exam - Vital Signs Vital signs: Vital Signs Pulse Resp 89 17 05/24/21 21:22 05/24/21 21:22 - Physical Exam Narrative exam: Constitutional: intubated, sedated Head: NC/AT Neck: supple Lungs: mechanical lung sounds CV: RRR, no M/R/G Abdomen: soft, non-tender, bowel sounds present Back: nontender Extremities: no edema, pulses WNL Skin: intact Neuro: sedated Results - Lab Results 05/25/21 04:38 05/25/21 04:38 Most recent lab results ABG pH 7.445 pH Units (7.350-7.450) 05/25/21 05:50 ABG pCO2 30.1 mm Hg 05/25/21 05:50 ABG pO2 128.1 mm Hg (80.0-90.0) H 05/25/21 05:50 ABG HCO3 20.2 mmol/L (20.0-26.0) 05/25/21 05:50 ABG O2 Saturation 98.6 % (95.0-99.0) 05/25/21 05:50 Calcium 9.1 mg/dL (8.4-10.2) 05/25/21 04:38 Assessment and Plan # Acute Kidney Injury: unknown baseline, likely pre-renal with tubular injury, rhabdomyolysis - IVF-> D5 + 1/2NS to encourage free water and renal perfusion - renal imaging- reviewed CT chest, shows renal cysts, likely acquired, no acute abnormalities - check PTH to help with chronicity - urinalysis reviewed - defer serologies, biopsy given less likelihood of glomerular disease, age/co- morbidities - avoid nephrotoxins - I/Os - no immediate need for HD # Hypernatremia: likely from poor thirst, free water deficit. IVF as above # Encephalopathy: likely multifactorial, do suspect dehydration # Respiratory Failure: ICU management of vent appreciated # Rhabdomyolysis: CK mildly elevated, improving with IVF
--- NOTE | 2021-05-25 12:42 | Progress Note ---
<TRACI DOMINGUEZ - Last Filed: 05/25/21 19:04> Assessment and Plan Assessment and plan: This is a 80-year-old AA male with a PmHx of Lewy body dementia, CVA, CKD, CAD, PAD, DM, HTN, HLD, and BPH who resides in a personal correction was brought into the emergency room by EMS for changes in mental status and respiratory failure. Upon his arrival in the ED patient was unresponsive and was intubated for airway protection. Patient was transferred to the ICU for further management. Hospital Course to Dates: 05/25/21- Patient is intubated and sedated on versed and propofol RASS -3, wean off sedation for SAT trial. Hypernatremia noted IVF per Nephro, FWF added. F/u lactic, trop, and EKG in the am. Continue to monitor renal function and electrolytes, am labs ordered. Assessment and Plan: #Neuro: Acute Metabolic Encephalopathy #H/o Lewy body dementia #H/o CVA - Patient is intubated and sedated o n fentanyl and versed - Titrate sedation for RASS goal 0 to -2 - 05/24 CT head w/o- Chronic small vessel disease however underlying ischemia cannot be exclude - Neurology consulted - Daily SAT and SBT per CCM - Avoid benzodiazepine's, reduce the possibility of delirium - Prn analgesia for CPOT greater than 3 - Maintenance of sleep-wake cycle, avoid delirium #CV:#Elevated troponin # Elevated CK #H/o HTN, HLD - Initial EKG with no ST changes - Most likely due to CKD - Patient is normotensive, NSR on monitor - Maintain adequate perfusion - Continue rehydration with cont. IVF - Continue blood pressure monitor per protocol - Maintain MAP above 65 - will restart home meds - elevated DDimer- 05/25 BLE doppler neg for DVT - Continue AC- Hep SubQ and SCDs for VTE proph - Repeat EKG in the am - Repeat Trop with am lab #Acute Respiratory Failure #Pulmonary Cysts - 05/24 CXR with no acute findings - 05/24 CT chest shows pulmonary cysts. but with no acute changed - Patient intubated in the ED for airway protection - Vent setting: PRVC- 30%,6,16,400 - This AM ABG noted- Vent changes per CCM - Continue SPO2 monitoring for SPO2 goal above 92% - Daily SAT and SBT trial - Daily ABGs and CXR - Aspiration precaution, HOB above 30 - Covid swab pending - CCM on consult #GI:NAP - Keep patient NPO for now - BR added - continue PPI- Pepcid #: Acute on Chronic Kidney Injury #Hypernatremia #Hyperkalemia- resolved #Cholelithiasis #Renal Cysts - Unknown of patient baseline - Initial Cr. 4.6-->4.1 this am - CT chest reveals multiples renal cysts of various sizes and Cholelithiasis - Nephrology on consult, appreciate recommendations - Sanchez in place, low urine output - Strict intake and output - Avoid nephrotoxic medications; Renally dose medications - Continue IVF per Nephro - FWF added - Monitor and replace electrolytes as needed - No immediate need for HD at this time per Nephro #ID: Metabolic Acidosis #Lactic Acidosis #Leukocytosis - Lactic 3.9 - Mild leukocytosis, WBCs 12.6 this am - Patient is afebrile - Blood culture X2 pending; UA is unremarkable - Continue IVF - Continue IV Abx- Rocephin for now - Trend lactic acid and Leukocytosis - Continue to F/U on B.cult - Daily CBC monitor - Consider ID consult if febrile or/and leukocytosis persists #Endo: Hypoglycemia #H/o DM - On Hypoglycemic protocol - Continue IVF D51/2NS - Point of care accucheck Q6hrs - Avoid hypoglycemia The high probability of a clinically significant, sudden or life threatening deterioration of the [multiple] system(s) required my full and direct attention, intervention and personal management. The aggregate critical care time was [90] minutes. This time is in addition to time spent performing reported procedures but includes the following: [x] Data Review and interpretation [x] Patient assessment and monitoring of vital signs [x] Documentation [x] Medication orders and management Disposition Plan: ICU Total Time Spent with Patient (Minutes): 90 History Interval history: Patient seen and examined at the bedside. Patient is intubated and sedated on versed and fentanyl RASS -2 to -3. No significant events overnight. Hospitalist Physical - Constitutional Vitals: Temp Pulse Resp BP Pulse Ox 97.5 F L 71 16 142/74 100 05/25/21 12:03 05/25/21 11:43 05/25/21 10:30 05/25/21 11:43 05/25/21 11:43 General appearance: Present: no acute distress, other (Currently intubated and sedated, dry oral mucosa) - EENT Eyes: Present: PERRL - Respiratory Respiratory effort: normal Respiratory: bilateral: diminished - Cardiovascular Rhythm: regular Heart Sounds: Present: S1 & S2 - Extremities Extremities: no ischemia, pulses intact, pulses symmetrical Peripheral Pulses: within normal limits - Abdominal General gastrointestinal: soft, non-tender, normal bowel sounds - Integumentary Integumentary: Present: clear, warm, dry - Psychiatric Psychiatric: other (Intubated and sedated) - Neurologic Neurologic: other (Intubated and sedated) - Allied Health Allied health notes reviewed: nursing HEART Score - HEART Score Troponin: Troponin T 0.199 ng/mL (0.00-0.029) H* 05/24/21 21:37 Results - Labs CBC & Chem 7: 05/25/21 04:38 05/25/21 04:38 Labs: Laboratory Last Values WBC 12.6 K/mm3 (4.5-11.0) H 05/25/21 04:38 RBC 3.92 M/mm3 (3.65-5.03) 05/25/21 04:38 Hgb 11.2 gm/dl (11.8-15.2) L 05/25/21 04:38 Hct 36.7 % (35.5-45.6) D 05/25/21 04:38 MCV 94 fl (84-94) 05/25/21 04:38 MCH 29 pg (28-32) 05/25/21 04:38 MCHC 31 % (32-34) L 05/25/21 04:38 RDW 15.1 % (13.2-15.2) 05/25/21 04:38 Plt Count 112 K/mm3 (140-440) L 05/25/21 04:38 Lymph % (Auto) 6.3 % (13.4-35.0) L 05/24/21 21:37 [place] % (Auto) 4.4 % (0.0-7.3) 05/24/21 21:37 Eos % (Auto) 0.1 % (0.0-4.3) 05/24/21 21:37 Baso % (Auto) 0.5 % (0.0-1.8) 05/24/21 21:37 Lymph # (Auto) 0.8 K/mm3 (1.2-5.4) L 05/24/21 21:37 [place] # (Auto) 0.6 K/mm3 (0.0-0.8) 05/24/21 21:37 Eos # (Auto) 0.0 K/mm3 (0.0-0.4) 05/24/21 21:37 Baso # (Auto) 0.1 K/mm3 (0.0-0.1) 05/24/21 21:37 Add Manual Diff Complete 05/25/21 04:38 Total Counted 100 05/25/21 04:38 Seg Neutrophils % Merchandising Stock Associate 05/25/21 04:38 Seg Neuts % (Manual) 92.0 % (40.0-70.0) H 05/25/21 04:38 Lymphocytes % (Manual) 6.0 % (13.4-35.0) L 05/25/21 04:38 Monocytes % (Manual) 2.0 % (0.0-7.3) 05/25/21 04:38 Nucleated RBC % Not Reportable 05/25/21 04:38 Seg Neutrophils # 11.0 K/mm3 (1.8-7.7) H 05/24/21 21:37 Seg Neutrophils # Man 11.6 K/mm3 (1.8-7.7) H 05/25/21 04:38 Band Neutrophils # 0.0 K/mm3 05/25/21 04:38 Lymphocytes # (Manual) 0.8 K/mm3 (1.2-5.4) L 05/25/21 04:38 Abs React Lymphs (Man) 0.0 K/mm3 05/25/21 04:38 Monocytes # (Manual) 0.3 K/mm3 (0.0-0.8) 05/25/21 04:38 Eosinophils # (Manual) 0.0 K/mm3 (0.0-0.4) 05/25/21 04:38 Basophils # (Manual) 0.0 K/mm3 (0.0-0.1) 05/25/21 04:38 Metamyelocytes # 0.0 K/mm3 05/25/21 04:38 Myelocytes # 0.0 K/mm3 05/25/21 04:38 Promyelocytes # 0.0 K/mm3 05/25/21 04:38 Blast Cells # 0.0 K/mm3 05/25/21 04:38 WBC Morphology Not Reportable 05/25/21 04:38 Hypersegmented Neuts Not Reportable 05/25/21 04:38 Hyposegmented Neuts Not Reportable 05/25/21 04:38 Hypogranular Neuts Not Reportable 05/25/21 04:38 Smudge Cells Not Reportable 05/25/21 04:38 Toxic Granulation Not Reportable 05/25/21 04:38 Toxic Vacuolation Not Reportable 05/25/21 04:38 Dohle Bodies Not Reportable 05/25/21 04:38 Pelger-Huet Anomaly Not Reportable 05/25/21 04:38 Casey Rods Not Reportable 05/25/21 04:38 Platelet Estimate Consistent w auto 05/25/21 04:38 Clumped Platelets Not Reportable 05/25/21 04:38 Plt Clumps, EDTA Not Reportable 05/25/21 04:38 Large Platelets Few 05/25/21 04:38 Giant Platelets Not Reportable 05/25/21 04:38 Platelet Satelliting Not Reportable 05/25/21 04:38 Plt Morphology Comment Not Reportable 05/25/21 04:38 RBC Morphology Not Reportable 05/25/21 04:38 Dimorphic RBCs Not Reportable 05/25/21 04:38 Polychromasia Not Reportable 05/25/21 04:38 Hypochromasia Not Reportable 05/25/21 04:38 Poikilocytosis Not Reportable 05/25/21 04:38 Anisocytosis 1+ 05/25/21 04:38 Microcytosis Not Reportable 05/25/21 04:38 Macrocytosis Not Reportable 05/25/21 04:38 Spherocytes Not Reportable 05/25/21 04:38 Pappenheimer Bodies Not Reportable 05/25/21 04:38 Sickle Cells Not Reportable 05/25/21 04:38 Target Cells Not Reportable 05/25/21 04:38 Tear Drop Cells Not Reportable 05/25/21 04:38 Ovalocytes Not Reportable 05/25/21 04:38 Helmet Cells Not Reportable 05/25/21 04:38 Cervantes-Ventura Bodies Not Reportable 05/25/21 04:38 Bishop Rings Not Reportable 05/25/21 04:38 Curtis Cells Not Reportable 05/25/21 04:38 Bite Cells Not Reportable 05/25/21 04:38 Crenated Cell Not Reportable 05/25/21 04:38 Elliptocytes Not Reportable 05/25/21 04:38 Acanthocytes (Spur) Not Reportable 05/25/21 04:38 Rouleaux Not Reportable 05/25/21 04:38 Hemoglobin C Crystals Not Reportable 05/25/21 04:38 Schistocytes Not Reportable 05/25/21 04:38 Malaria parasites Not Reportable 05/25/21 04:38 Tan Bodies Not Reportable 05/25/21 04:38 Hem Pathologist Commnt No 05/25/21 04:38 PT 15.7 Sec. (12.2-14.9) H 05/25/21 04:38 INR 1.13 (0.87-1.13) 05/25/21 04:38 APTT 20.0 Sec. (24.2-36.6) L 05/24/21 21:37 D-Dimer 2504.89 ng/mlDDU (0-234) H 05/24/21 21:37 ABG pH 7.445 pH Units (7.350-7.450) 05/25/21 05:50 ABG pCO2 30.1 mm Hg 05/25/21 05:50 ABG pO2 128.1 mm Hg (80.0-90.0) H 05/25/21 05:50 ABG HCO3 20.2 mmol/L (20.0-26.0) 05/25/21 05:50 ABG O2 Saturation 98.6 % (95.0-99.0) 05/25/21 05:50 ABG O2 Content 24.2 (0.0-44) 05/25/21 05:50 ABG Base Excess -2.3 mmol/L (-2.0-3.0) L 05/25/21 05:50 ABG Hemoglobin 17.7 gm/dl (14.0-18.0) 05/25/21 05:50 ABG Carboxyhemoglobin 1.0 % (0.0-5.0) 05/25/21 05:50 ABG Methemoglobin 0.5 % (0.0-1.5) 05/25/21 05:50 Oxyhemoglobin 97.1 % (95.0-99.0) 05/25/21 05:50 FiO2 30 % 05/25/21 05:50 Sodium 162 mmol/L (137-145) H* 05/25/21 04:38 Potassium 4.7 mmol/L (3.6-5.0) 05/25/21 04:38 Chloride 128.6 mmol/L (98-107) H 05/25/21 04:38 Carbon Dioxide 22 mmol/L (22-30) 05/25/21 04:38 Anion Gap 16 mmol/L 05/25/21 04:38 BUN 109 mg/dL (9-20) H 05/25/21 04:38 Creatinine 4.1 mg/dL (0.8-1.3) H 05/25/21 04:38 Estimated GFR 17 ml/min 05/25/21 04:38 BUN/Creatinine Ratio 27 % 05/25/21 04:38 Glucose 131 mg/dL (75-100) H 05/25/21 04:38 POC Glucose 62 mg/dL (70-105) L 05/25/21 11:41 Lactic Acid 3.90 mmol/L (0.7-2.0) H* 05/24/21 21:37 Calcium 9.1 mg/dL (8.4-10.2) 05/25/21 04:38 Ferritin 202.6 ng/mL (30.0-300.0) 05/24/21 21:37 Total Bilirubin 0.60 mg/dL (0.1-1.2) 05/24/21 21:37 AST 52 units/L (5-40) H 05/24/21 21:37 ALT 43 units/L (7-56) 05/24/21 21:37 Alkaline Phosphatase 119 units/L (35-129) 05/24/21 21:37 Ammonia 39.0 umol/L (25-60) 05/24/21 21:37 Lactate Dehydrogenase 275 units/L (91-180) H 05/24/21 21:37 Total Creatine Kinase 936 units/L (55-170) H 05/25/21 04:38 Troponin T 0.199 ng/mL (0.00-0.029) H* 05/24/21 21:37 C-Reactive Protein 0.80 mg/dL (0.00-1.30) 05/24/21 21:37 Total Protein 7.0 g/dL (6.3-8.2) 05/24/21 21:37 Albumin 3.2 g/dL (3.9-5) L 05/24/21 21:37 Albumin/Globulin Ratio 0.8 % 05/24/21 21:37 Triglycerides 79 mg/dL (2-149) 05/24/21 21:37 Cholesterol 91 mg/dL (50-199) 05/24/21 21:37 LDL Cholesterol Direct 41 mg/dL (50-130) L 05/24/21 21:37 HDL Cholesterol 35 mg/dL (40-59) L 05/24/21 21:37 Cholesterol/HDL Ratio 2.60 % 05/24/21 21:37 Procalcitonin 0.11 ng/mL (<0.15) 05/24/21 21:37 TSH 2.390 mlU/mL (0.270-4.200) 05/24/21 21:37 Urine Color Yellow (Yellow) 05/25/21 02:20 Urine Turbidity Slightly-cloudy (Clear) 05/25/21 02:20 Urine pH 5.0 (5.0-7.0) 05/25/21 02:20 Ur Specific [place] 1.018 (1.003-1.030) 05/25/21 02:20 Urine Protein 30 mg/dl mg/dL (Negative) 05/25/21 02:20 Urine Glucose (UA) Neg mg/dL (Negative) 05/25/21 02:20 Urine Ketones Neg mg/dL (Negative) 05/25/21 02:20 Urine Blood Sm (Negative) 05/25/21 02:20 Urine Nitrite Neg (Negative) 05/25/21 02:20 Urine Bilirubin Neg (Negative) 05/25/21 02:20 Urine Urobilinogen < 2.0 mg/dL (<2.0) 05/25/21 02:20 Ur Leukocyte Esterase Lg (Negative) 05/25/21 02:20 Urine WBC (Auto) 75.0 /HPF (0.0-6.0) H 05/25/21 02:20 Urine RBC (Auto) 2.0 /HPF (0.0-6.0) 05/25/21 02:20 U Epithel Cells (Auto) 1.0 /HPF (0-13.0) 05/25/21 02:20 Urine Bacteria (Auto) 1+ /HPF (Negative) 05/25/21 02:20 Hyaline Casts 1 /LPF 05/25/21 02:20 Urine Mucus Few /HPF 05/25/21 02:20 Urine Yeast (Budding) 1+ /HPF 05/25/21 02:20 Salicylates < 0.3 mg/dL (2.8-20.0) L 05/24/21 21:37 Acetaminophen 5.0 ug/mL (10.0-30.0) L 05/24/21 21:37 Plasma/Serum Alcohol < 0.01 % (0-0.07) 05/24/21 21:37 Blood Type A NEGATIVE 05/24/21 21:37 Antibody Screen Negative 05/24/21 21:37 Microbiology: Microbiology 05/24/21 21:37 Peripheral/Venous Blood Culture - Preliminary Culture in Progress 05/24/21 21:37 Peripheral/Venous Blood Culture - Preliminary Culture in Progress Sanchez/IV: Voiding Method Indwelling Catheter Active Medications - Current Medications Current Medications: Generic Name Dose Route Start Last Admin Trade Name Freq PRN Reason Stop Dose Admin Acetaminophen 650 mg 05/24/21 23:27 Acetaminophen 650 Mg Rect Supp LA Q6H PRN Pain MILD(1-3)/Fever >100.5/VALADEZ Lipase/Protease/Amylase 1 each 05/25/21 10:40 Lipase 10,500/Protease 25,000/Amylase 43,750 (Units) Cap FEEDTUBE PRN PRN For Clogged Feeding Tube Famotidine 20 mg 05/25/21 22:00 Famotidine 20 Mg/2 Ml Inj IV DAILY@2200 PABLO Fentanyl 50 mcg 05/24/21 21:28 Fentanyl 100 Mcg/2 Ml Inj IV Q10MIN PRN ANALGESIA Heparin Sodium (Porcine) 5,000 unit 05/25/21 06:00 05/25/21 06:56 Heparin 5,000 Unit/1 Ml Vial SUB-Q 5,000 unit Q8HR PABLO Administration Hydrophilic Ointment 1 applic 05/24/21 21:28 Lip Therapy Vaseline TP Q2HR PRN Dry Lips Fentanyl Citrate 2,000 mcg in 100 mls @ 2.25 mls/hr 05/24/21 22:00 05/25/21 04:34 Fentanyl Drip Premix IV 1 mcg/kg/hr TITR PABLO 2.25 mls/hr Titration Protocol 1 MCG/KG/HR Midazolam HCl 100 mg/ Sodium 100 mls @ 2 mls/hr 05/24/21 22:00 05/25/21 04:32 Chloride IV 1 mg/hr TITR PABLO 1 mls/hr Titration Protocol 2 MG/HR Ceftriaxone Sodium 2 gm in 100 mls @ 200 mls/hr 05/25/21 22:00 Rocephin/Ns 2 Gm/100 Ml IV Q24H PABLO Protocol Dextrose/Sodium Chloride 1,000 mls @ 125 mls/hr 05/25/21 13:00 D5/0.45ns IV DIRECT PABLO Magnesium Hydroxide 30 ml 05/24/21 23:27 Magnesium Hydroxide (Mom) Oral Liqd Udc PO Q4H PRN Constipation Midazolam HCl 2 mg 05/24/21 21:28 Midazolam 2 Mg/2 Ml Inj IV Q10MIN PRN Sedation Morphine Sulfate 2 mg 05/24/21 23:27 Morphine 2 Mg/1 Ml Inj IV Q4H PRN Pain, Moderate (4-6) Morphine Sulfate 4 mg 05/24/21 23:27 Morphine 4 Mg/1 Ml Inj IV Q4H PRN Pain , Severe (7-10) Multi-Ingred Cream/Lotion/Oil/Oint 1 applic 05/24/21 21:28 Mineral Oil/Petrolatum, White Ophth Oint 3.5 Gm OU Q4HR PRN Dry Eye(s) Ondansetron HCl 4 mg 05/24/21 23:27 Ondansetron 4 Mg/2 Ml Inj IV Q8H PRN Nausea And Vomiting Senna/Docusate Sodium 1 tab 05/24/21 22:00 05/25/21 01:11 Sennosides/Docusate Sodium 8.6/50 Mg Tab FEEDTUBE Not Given BID PABLO Simple Syrup 15 ml 05/25/21 10:40 Simple Syrup 15 Ml FEEDTUBE PRN PRN Hypoglycemia Simple Syrup 30 ml 05/25/21 10:40 Simple Syrup 15 Ml FEEDTUBE PRN PRN Hypoglycemia Sodium Bicarbonate 325 mg 05/25/21 10:40 Sodium Bicarbonate 325 Mg Tab FEEDTUBE PRN PRN For Clogged Feeding Tube Sodium Chloride 10 ml 05/25/21 10:00 05/25/21 10:36 Sodium Chloride 0.9% 10 Ml Flush Syringe IV 10 ml BID PABLO Administration Sodium Chloride 10 ml 05/24/21 23:27 Sodium Chloride 0.9% 10 Ml Flush Syringe IV PRN PRN LINE FLUSH Nutrition/Malnutrition Assess - Dietary Evaluation Nutrition/Malnutrition Findings: Nutrition Notes Start: 05/25/21 08:23 Freq: Status: Active Protocol: Document 05/25/21 10:15 GB (Rec: 05/25/21 10:39 GB [id number]) Nutrition Notes Initial or Follow up Reassessment Current Diagnosis Acute Kidney Injury, Hypertension,Respiratory Failure Other Pertinent Diagnosis AMS, SIRS, uremic encephalopathy. Pt Intubated. pMHx: dementia Current Diet NPO x1day Labs/Tests 05/25: Na 162, Cl 128.6, BUN 109, Cr 4.1, Glu 131. Pertinent Medications Fentanyl Citrate, Height 6 ft Weight 45 kg [place] Body Weight (kg) 80.90 BMI 13.4 Weight change and time frame No change reported Weight Status Underweight Subjective/Other Information Pt unresponsive, sedated, mechanical respirator. Last BM: 05/25 TF to start: Glucerna 1.2 @ 45ml/hr with flush 100ml/4hr Pt is 60% IBW, BMI <19.5: possibly r/t advancement of dementia disease process, NH resident Percent of energy/protein needs met: 0% - NPO TF being ordered. TF at goal provides greater then 75% minimal EEN. Burn Absent Trauma Absent GI Symptoms None Difficulty In Swallowing Food Allergy No Skin Integrity/Comment No complications reported Current % PO Other Body Fat Depletion Moderate depletion (severe) #1 Nutrition Diagnosis Predicted suboptimal energy intake,Swallowing difficulty, Underweight Etiology AMS, respiratory failure As Evidenced by Signs and Symptoms sedated/intubated Is patient on ventilator? Yes Is Patient Ambulatory and/or Out of Bed No REE-([facility]-confined to bed) 1456.548 Kcal/Kg value to use for calculation 35 Approximate Energy Requirements Using 1575 kcal/Kg Calculation Used for Recommendations Kcal/kg Additional Notes Protein: 1-1.5 g/kg @ 45k -68g Fluids: 1 ml/kcal or per MD Nutrition Intervention Change Diet Order: Continue NPO Nutrition Support: Glucerna 1.2 @ 45ml/hr Flush: 100ml/4hr total free H2O: TF@goal + flush = 1469ml Kcal 1,296 Protein (gm) 65 Carbohydrates (gm) 124 Fat (gm) 65 Fluid (mL) 869 Add Supplement/Snack (indicate name/kcal n/a /protein ) Education Handouts Provided n/a Goal #1 TF started and tolerated, Glucerna 1.2 by f/u Goal #2 TF at goal rate of 45ml/hr: glucerna 1.2 by f/u Goal #3 New Weight measured and recorded by f/u Follow-Up By: 05/30/21 Additional Comments f/u: TF@goal, tolerance, weight <OCTAVIA MARTINI R - Last Filed: 05/27/21 07:45> Assessment and Plan Assessment and plan: I saw and evaluated the patient on 05/25/21. I agree with the findings and the plan of care as documented in the Nurse Practitioner's~note, Hospitalist Physical - Constitutional Vitals: Temp Pulse Resp BP Pulse Ox 99.9 F H 81 12 140/71 100 05/26/21 12:00 05/26/21 15:55 05/26/21 14:00 05/26/21 14:00 05/26/21 15:55 HEART Score - HEART Score Troponin: Troponin T 0.167 ng/mL (0.00-0.029) H* 05/26/21 05:04 Results - Labs CBC & Chem 7: 05/26/21 05:04 05/26/21 05:04 Labs: Laboratory Last Values WBC 13.3 K/mm3 (4.5-11.0) H 05/26/21 05:04 RBC 3.88 M/mm3 (3.65-5.03) 05/26/21 05:04 Hgb 11.3 gm/dl (11.8-15.2) L 05/26/21 05:04 Hct 36.2 % (35.5-45.6) 05/26/21 05:04 MCV 93 fl (84-94) 05/26/21 05:04 MCH 29 pg (28-32) 05/26/21 05:04 MCHC 31 % (32-34) L 05/26/21 05:04 RDW 15.4 % (13.2-15.2) H 05/26/21 05:04 Plt Count 98 K/mm3 (140-440) L 05/26/21 05:04 Lymph % (Auto) 6.3 % (13.4-35.0) L 05/24/21 21:37 [place] % (Auto) 4.4 % (0.0-7.3) 05/24/21 21:37 Eos % (Auto) 0.1 % (0.0-4.3) 05/24/21 21:37 Baso % (Auto) 0.5 % (0.0-1.8) 05/24/21 21:37 Lymph # (Auto) 0.8 K/mm3 (1.2-5.4) L 05/24/21 21:37 [place] # (Auto) 0.6 K/mm3 (0.0-0.8) 05/24/21 21:37 Eos # (Auto) 0.0 K/mm3 (0.0-0.4) 05/24/21 21:37 Baso # (Auto) 0.1 K/mm3 (0.0-0.1) 05/24/21 21:37 Add Manual Diff Complete 05/25/21 04:38 Total Counted 100 05/25/21 04:38 Seg Neutrophils % Merchandising Stock Associate 05/25/21 04:38 Seg Neuts % (Manual) 92.0 % (40.0-70.0) H 05/25/21 04:38 Lymphocytes % (Manual) 6.0 % (13.4-35.0) L 05/25/21 04:38 Monocytes % (Manual) 2.0 % (0.0-7.3) 05/25/21 04:38 Nucleated RBC % Not Reportable 05/25/21 04:38 Seg Neutrophils # 11.0 K/mm3 (1.8-7.7) H 05/24/21 21:37 Seg Neutrophils # Man 11.6 K/mm3 (1.8-7.7) H 05/25/21 04:38 Band Neutrophils # 0.0 K/mm3 05/25/21 04:38 Lymphocytes # (Manual) 0.8 K/mm3 (1.2-5.4) L 05/25/21 04:38 Abs React Lymphs (Man) 0.0 K/mm3 05/25/21 04:38 Monocytes # (Manual) 0.3 K/mm3 (0.0-0.8) 05/25/21 04:38 Eosinophils # (Manual) 0.0 K/mm3 (0.0-0.4) 05/25/21 04:38 Basophils # (Manual) 0.0 K/mm3 (0.0-0.1) 05/25/21 04:38 Metamyelocytes # 0.0 K/mm3 05/25/21 04:38 Myelocytes # 0.0 K/mm3 05/25/21 04:38 Promyelocytes # 0.0 K/mm3 05/25/21 04:38 Blast Cells # 0.0 K/mm3 05/25/21 04:38 WBC Morphology Not Reportable 05/25/21 04:38 Hypersegmented Neuts Not Reportable 05/25/21 04:38 Hyposegmented Neuts Not Reportable 05/25/21 04:38 Hypogranular Neuts Not Reportable 05/25/21 04:38 Smudge Cells Not Reportable 05/25/21 04:38 Toxic Granulation Not Reportable 05/25/21 04:38 Toxic Vacuolation Not Reportable 05/25/21 04:38 Dohle Bodies Not Reportable 05/25/21 04:38 Pelger-Huet Anomaly Not Reportable 05/25/21 04:38 Casey Rods Not Reportable 05/25/21 04:38 Platelet Estimate Consistent w auto 05/25/21 04:38 Clumped Platelets Not Reportable 05/25/21 04:38 Plt Clumps, EDTA Not Reportable 05/25/21 04:38 Large Platelets Few 05/25/21 04:38 Giant Platelets Not Reportable 05/25/21 04:38 Platelet Satelliting Not Reportable 05/25/21 04:38 Plt Morphology Comment Not Reportable 05/25/21 04:38 RBC Morphology Not Reportable 05/25/21 04:38 Dimorphic RBCs Not Reportable 05/25/21 04:38 Polychromasia Not Reportable 05/25/21 04:38 Hypochromasia Not Reportable 05/25/21 04:38 Poikilocytosis Not Reportable 05/25/21 04:38 Anisocytosis 1+ 05/25/21 04:38 Microcytosis Not Reportable 05/25/21 04:38 Macrocytosis Not Reportable 05/25/21 04:38 Spherocytes Not Reportable 05/25/21 04:38 Pappenheimer Bodies Not Reportable 05/25/21 04:38 Sickle Cells Not Reportable 05/25/21 04:38 Target Cells Not Reportable 05/25/21 04:38 Tear Drop Cells Not Reportable 05/25/21 04:38 Ovalocytes Not Reportable 05/25/21 04:38 Helmet Cells Not Reportable 05/25/21 04:38 Cervantes-Ventura Bodies Not Reportable 05/25/21 04:38 Bishop Rings Not Reportable 05/25/21 04:38 Curtis Cells Not Reportable 05/25/21 04:38 Bite Cells Not Reportable 05/25/21 04:38 Crenated Cell Not Reportable 05/25/21 04:38 Elliptocytes Not Reportable 05/25/21 04:38 Acanthocytes (Spur) Not Reportable 05/25/21 04:38 Rouleaux Not Reportable 05/25/21 04:38 Hemoglobin C Crystals Not Reportable 05/25/21 04:38 Schistocytes Not Reportable 05/25/21 04:38 Malaria parasites Not Reportable 05/25/21 04:38 Tan Bodies Not Reportable 05/25/21 04:38 Hem Pathologist Commnt No 05/25/21 04:38 PT 15.7 Sec. (12.2-14.9) H 05/25/21 04:38 INR 1.13 (0.87-1.13) 05/25/21 04:38 APTT 20.0 Sec. (24.2-36.6) L 05/24/21 21:37 D-Dimer 2504.89 ng/mlDDU (0-234) H 05/24/21 21:37 ABG pH 7.362 (7.320-7.450) 05/25/21 21:41 POC ABG pCO2 38.1 mmHg (32.0-48.0) 05/25/21 21:41 ABG pCO2 30.1 mm Hg 05/25/21 05:50 POC ABG pO2 132.7 mmHg (83-108) H 05/25/21 21:41 ABG pO2 128.1 mm Hg (80.0-90.0) H 05/25/21 05:50 POC ABG HCO3 21.1 05/25/21 21:41 ABG HCO3 20.2 mmol/L (20.0-26.0) 05/25/21 05:50 ABG O2 Saturation 98.6 (0-100) 05/25/21 21:41 ABG O2 Content 24.2 (0.0-44) 05/25/21 05:50 POC ABG Base Excess -3.8 05/25/21 21:41 ABG Base Excess -2.3 mmol/L (-2.0-3.0) L 05/25/21 05:50 ABG Hemoglobin 11.8 (12.0-17.5) L 05/25/21 21:41 ABG Oxyhemoglobin 98.0 (94-98) 05/25/21 21:41 ABG Carboxyhemoglobin 1.0 % (0.0-5.0) 05/25/21 05:50 ABG Methemoglobin 0.3 (0.0-1.5) 05/25/21 21:41 ABG Sodium 153.8 mmol/L (136.0-145.0) H 05/25/21 21:41 ABG Potassium 4.3 mmol/L (3.40-4.50) 05/25/21 21:41 ABG Chloride 125.0 mmol/L (98-107) H 05/25/21 21:41 ABG Glucose 119 mg/dL (65-95) H 05/25/21 21:41 Oxyhemoglobin 97.1 % (95.0-99.0) 05/25/21 05:50 Carboxyhemoglobin 0.3 (0.5-1.5) L 05/25/21 21:41 FiO2 30 % 05/25/21 05:50 FiO2 % 30.0 05/25/21 21:41 Sodium 154 mmol/L (137-145) H 05/26/21 05:04 Potassium 4.4 mmol/L (3.6-5.0) 05/26/21 05:04 Chloride 122.1 mmol/L (98-107) H 05/26/21 05:04 Carbon Dioxide 21 mmol/L (22-30) L 05/26/21 05:04 Anion Gap 15 mmol/L 05/26/21 05:04 BUN 95 mg/dL (9-20) H 05/26/21 05:04 Creatinine 3.6 mg/dL (0.8-1.3) H 05/26/21 05:04 Estimated GFR 20 ml/min 05/26/21 05:04 BUN/Creatinine Ratio 26 % 05/26/21 05:04 Glucose 122 mg/dL (75-100) H 05/26/21 05:04 POC Glucose 85 mg/dL (70-105) 05/26/21 11:49 Lactic Acid 1.60 mmol/L (0.7-2.0) 05/26/21 05:04 Calcium 9.6 mg/dL (8.4-10.2) 05/26/21 05:04 Phosphorus 3.10 mg/dL (2.5-4.5) 05/26/21 05:04 Magnesium 2.40 mg/dL (1.7-2.3) H 05/26/21 05:04 Ferritin 202.6 ng/mL (30.0-300.0) 05/24/21 21:37 Total Bilirubin 0.60 mg/dL (0.1-1.2) 05/24/21 21:37 AST 52 units/L (5-40) H 05/24/21 21:37 ALT 43 units/L (7-56) 05/24/21 21:37 Alkaline Phosphatase 119 units/L (35-129) 05/24/21 21:37 Ammonia 39.0 umol/L (25-60) 05/24/21 21:37 Lactate Dehydrogenase 275 units/L (91-180) H 05/24/21 21:37 Total Creatine Kinase 936 units/L (55-170) H 05/25/21 04:38 Troponin T 0.167 ng/mL (0.00-0.029) H* 05/26/21 05:04 C-Reactive Protein 0.80 mg/dL (0.00-1.30) 05/24/21 21:37 Total Protein 7.0 g/dL (6.3-8.2) 05/24/21 21:37 Albumin 3.2 g/dL (3.9-5) L 05/24/21 21:37 Albumin/Globulin Ratio 0.8 % 05/24/21 21:37 Triglycerides 79 mg/dL (2-149) 05/24/21 21:37 Cholesterol 91 mg/dL (50-199) 05/24/21 21:37 LDL Cholesterol Direct 41 mg/dL (50-130) L 05/24/21 21:37 HDL Cholesterol 35 mg/dL (40-59) L 05/24/21 21:37 Cholesterol/HDL Ratio 2.60 % 05/24/21 21:37 Procalcitonin 0.11 ng/mL (<0.15) 05/24/21 21:37 TSH 2.390 mlU/mL (0.270-4.200) 05/24/21 21:37 PTH Intact 279.6 pg/mL (15-65) H 05/25/21 Unknown Arterial Blood Glucose 119 mg/dL (65-95) H 05/25/21 21:41 Urine Color Yellow (Yellow) 05/25/21 02:20 Urine Turbidity Slightly-cloudy (Clear) 05/25/21 02:20 Urine pH 5.0 (5.0-7.0) 05/25/21 02:20 Ur Specific [place] 1.018 (1.003-1.030) 05/25/21 02:20 Urine Protein 30 mg/dl mg/dL (Negative) 05/25/21 02:20 Urine Glucose (UA) Neg mg/dL (Negative) 05/25/21 02:20 Urine Ketones Neg mg/dL (Negative) 05/25/21 02:20 Urine Blood Sm (Negative) 05/25/21 02:20 Urine Nitrite Neg (Negative) 05/25/21 02:20 Urine Bilirubin Neg (Negative) 05/25/21 02:20 Urine Urobilinogen < 2.0 mg/dL (<2.0) 05/25/21 02:20 Ur Leukocyte Esterase Lg (Negative) 05/25/21 02:20 Urine WBC (Auto) 75.0 /HPF (0.0-6.0) H 05/25/21 02:20 Urine RBC (Auto) 2.0 /HPF (0.0-6.0) 05/25/21 02:20 U Epithel Cells (Auto) 1.0 /HPF (0-13.0) 05/25/21 02:20 Urine Bacteria (Auto) 1+ /HPF (Negative) 05/25/21 02:20 Hyaline Casts 1 /LPF 05/25/21 02:20 Urine Mucus Few /HPF 05/25/21 02:20 Urine Yeast (Budding) 1+ /HPF 05/25/21 02:20 Salicylates < 0.3 mg/dL (2.8-20.0) L 05/24/21 21:37 Acetaminophen 5.0 ug/mL (10.0-30.0) L 05/24/21 21:37 Plasma/Serum Alcohol < 0.01 % (0-0.07) 05/24/21 21:37 Coronavirus (PCR) Negative (Negative) 05/25/21 08:00 Blood Type A NEGATIVE 05/24/21 21:37 Antibody Screen Negative 05/24/21 21:37 Microbiology: Microbiology 05/24/21 21:37 Peripheral/Venous Blood Culture - Preliminary NO GROWTH AFTER 48 HOURS 05/24/21 21:37 Peripheral/Venous Blood Culture - Preliminary NO GROWTH AFTER 48 HOURS 05/24/21 Unknown Urine,Catheterized - Straight Catheter Urine Culture - Preliminary Gram Negative Matthew Sanchez/IV: Voiding Method Indwelling Catheter Nutrition/Malnutrition Assess - Dietary Evaluation Nutrition/Malnutrition Findings: Nutrition Notes Start: 05/25/21 08:23 Freq: Status: Discharge Protocol: Document 05/26/21 14:45 LUCY (Rec: 05/26/21 14:53 [facility] [id number] Nutrition Notes Initial or Follow up Brief Note Current Diet TF - Glucerna 1.2 at 45ml/hr Labs/Tests Na 154 BUN 95 Cr 3.6 Mg 2.4 Phos 3.1 Height 6 ft Weight 45 kg [place] Body Weight (kg) 80.90 BMI 13.4 Subjective/Other Information Observed TF infusing at 25ml/ hr. Pt remains on vent support. Per nephrology, no immediate need for HD. Percent of energy/protein needs met: 49% energy 67% pro Nutrition Intervention Follow-Up By: 05/27/21 Additional Comments F/U: TF goal rate/tolerance, vent status, renal function
--- NOTE | 2021-05-25 13:04 | Event Note ---
Date: 05/25/21 Notified thi morning by nursing team that patient's daughter called overnight and stated that patient is a DNR/DNI and he did not want to be intubated. Placed a call and spoke to patient's daughter, [place] at [phone]. Patient's daughter was updated on patient's status and condition. Patient's code status was also clarified at this time. Per patient's daughter, patient did not want to be intubated, the facility where the patient resides have POA paperwork stating his DNR status. Unfortunately such document was not present upon admit for it to be implemented. Patient's daughter stated that she would like to keep him a full code for now. She stated that she will eventually switch him back to DNR/DNI but she would l reyna to come visit him first. She lives in [place] and is planning to come to [place] this week for a visit. I thoroughly discussed the risks, benefits, and probable outcomes of resuscitative efforts in the event of a failure of the patients organs or systems, patient's daughter verbalized understanding of info given, and all questions and concerns were addressed at this time. Team to follow up with further updates.
--- NOTE | 2021-05-25 14:06 | Consultation ---
History of Present Illness Consult date: 05/25/21 Requesting physician: GISSELLE ZARATE Reason for consult: other (Acute Hypoxemic Respiratory Failure) History of present illness: PULMONARY/CCM CONSULT NOTE (Full dictation # [id number]) Please see dictated notes for full details Past History Past Medical History: hypertension, other (Lewy body dementia, history of NSTEMI, history of recent UTI) Past Surgical History: Other (Unobtainable) Social history: other (Lives in a personal senior living) Family history: other (Unobtainable) Medications and Allergies Allergies Allergy/AdvReac Type Severity Reaction Status Date / Time No Known Allergies Allergy Verified 05/24/21 21:45 Active Meds: Active Medications Acetaminophen (Acetaminophen 650 Mg Rect Supp) 650 mg PA Q6H PRN PRN Reason: Pain MILD(1-3)/Fever >100.5/VALADEZ Lipase/Protease/Amylase (Lipase 10,500/Protease 25,000/Amylase 43,750 (Units) Dr Cap) 1 each FEEDTUBE PRN PRN PRN Reason: For Clogged Feeding Tube Famotidine (Famotidine 20 Mg/2 Ml Inj) 20 mg IV DAILY@2200 PABLO Fentanyl (Fentanyl 100 Mcg/2 Ml Inj) 50 mcg IV Q10MIN PRN PRN Reason: ANALGESIA Heparin Sodium (Porcine) (Heparin 5,000 Unit/1 Ml Vial) 5,000 unit SUB-Q Q8HR PABLO Last Admin: 05/25/21 06:56 Dose: 5,000 unit Documented by: Hydrophilic Ointment (Lip Therapy Vaseline) 1 applic TP Q2HR PRN PRN Reason: Dry Lips Fentanyl Citrate (Fentanyl Drip Premix) 2,000 mcg in 100 mls @ 2.25 mls/hr IV TITR PABLO; Protocol Last Titration: 05/25/21 04:34 Dose: 1 mcg/kg/hr, 2.25 mls/hr Documented by: Midazolam HCl 100 mg/ Sodium (Chloride) 100 mls @ 2 mls/hr IV TITR PABLO; Protocol Last Titration: 05/25/21 04:32 Dose: 1 mg/hr, 1 mls/hr Documented by: Ceftriaxone Sodium (Rocephin/Ns 2 Gm/100 Ml) 2 gm in 100 mls @ 200 mls/hr IV Q24H PABLO; Protocol Dextrose/Sodium Chloride (D5/0.45ns) 1,000 mls @ 125 mls/hr IV DIRECT PABLO Magnesium Hydroxide (Magnesium Hydroxide (Mom) Oral Liqd Udc) 30 ml PO Q4H PRN PRN Reason: Constipation Midazolam HCl (Midazolam 2 Mg/2 Ml Inj) 2 mg IV Q10MIN PRN PRN Reason: Sedation Morphine Sulfate (Morphine 2 Mg/1 Ml Inj) 2 mg IV Q4H PRN PRN Reason: Pain, Moderate (4-6) Morphine Sulfate (Morphine 4 Mg/1 Ml Inj) 4 mg IV Q4H PRN PRN Reason: Pain , Severe (7-10) Multi-Ingred Cream/Lotion/Oil/Oint (Mineral Oil/Petrolatum, White Ophth Oint 3.5 Gm) 1 applic OU Q4HR PRN PRN Reason: Dry Eye(s) Ondansetron HCl (Ondansetron 4 Mg/2 Ml Inj) 4 mg IV Q8H PRN PRN Reason: Nausea And Vomiting Senna/Docusate Sodium (Sennosides/Docusate Sodium 8.6/50 Mg Tab) 1 tab FEEDTUBE BID [facility] Last Admin: 05/25/21 01:11 Dose: Not Given Documented by: Simple Syrup (Simple Syrup 15 Ml) 15 ml FEEDTUBE PRN PRN PRN Reason: Hypoglycemia Simple Syrup (Simple Syrup 15 Ml) 30 ml FEEDTUBE PRN PRN PRN Reason: Hypoglycemia Sodium Bicarbonate (Sodium Bicarbonate 325 Mg Tab) 325 mg FEEDTUBE PRN PRN PRN Reason: For Clogged Feeding Tube Sodium Chloride (Sodium Chloride 0.9% 10 Ml Flush Syringe) 10 ml IV BID [facility] Last Admin: 05/25/21 10:36 Dose: 10 ml Documented by: Sodium Chloride (Sodium Chloride 0.9% 10 Ml Flush Syringe) 10 ml IV PRN PRN PRN Reason: LINE FLUSH Physical Examination Vital signs: Vital Signs Pulse Resp 89 17 05/24/21 21:22 05/24/21 21:22 Results - Laboratory Findings CBC and BMP: 05/25/21 04:38 05/25/21 04:38 ABG ABG pH 7.445 pH Units (7.350-7.450) 05/25/21 05:50 ABG pCO2 30.1 mm Hg 05/25/21 05:50 ABG pO2 128.1 mm Hg (80.0-90.0) H 05/25/21 05:50 ABG O2 Saturation 98.6 % (95.0-99.0) 05/25/21 05:50 PT/INR, D-dimer PT 15.7 Sec. (12.2-14.9) H 05/25/21 04:38 INR 1.13 (0.87-1.13) 05/25/21 04:38 D-Dimer 2504.89 ng/mlDDU (0-234) H 05/24/21 21:37 Abnormal lab findings: Abnormal Labs 05/24/21 05/24/21 05/24/21 21:14 21:37 21:37 WBC 12.4 H Hgb Hct 46.1 H MCV 96 H MCHC 30 L RDW 15.4 H Plt Count 123 L Lymph % (Auto) 6.3 L Lymph # (Auto) 0.8 L Seg Neutrophils % 88.7 H Seg Neuts % (Manual) Lymphocytes % (Manual) Seg Neutrophils # 11.0 H Seg Neutrophils # Man Lymphocytes # (Manual) PT APTT 20.0 L D-Dimer 2504.89 H ABG pH ABG pO2 ABG HCO3 ABG O2 Saturation ABG Base Excess ABG Hemoglobin Sodium Potassium Chloride Carbon Dioxide BUN Creatinine Glucose POC Glucose 109 H Lactic Acid Calcium AST Lactate Dehydrogenase Total Creatine Kinase Troponin T Albumin LDL Cholesterol Direct HDL Cholesterol PTH Intact Urine WBC (Auto) Salicylates Acetaminophen 05/24/21 05/24/21 05/24/21 21:37 21:37 21:37 WBC Hgb Hct MCV MCHC RDW Plt Count Lymph % (Auto) Lymph # (Auto) Seg Neutrophils % Seg Neuts % (Manual) Lymphocytes % (Manual) Seg Neutrophils # Seg Neutrophils # Man Lymphocytes # (Manual) PT APTT D-Dimer ABG pH ABG pO2 ABG HCO3 ABG O2 Saturation ABG Base Excess ABG Hemoglobin Sodium 167 H* Potassium 5.3 H Chloride 130.9 H Carbon Dioxide 19 L BUN 121 H Creatinine 4.6 H Glucose 122 H POC Glucose Lactic Acid 3.90 H* Calcium 10.5 H AST 52 H Lactate Dehydrogenase 275 H Total Creatine Kinase Troponin T 0.199 H* Albumin 3.2 L LDL Cholesterol Direct 41 L HDL Cholesterol 35 L PTH Intact Urine WBC (Auto) Salicylates < 0.3 L Acetaminophen 05/24/21 05/24/21 05/25/21 21:37 21:37 02:13 WBC Hgb Hct MCV MCHC RDW Plt Count Lymph % (Auto) Lymph # (Auto) Seg Neutrophils % Seg Neuts % (Manual) Lymphocytes % (Manual) Seg Neutrophils # Seg Neutrophils # Man Lymphocytes # (Manual) PT APTT D-Dimer ABG pH 7.533 H ABG pO2 438.0 H ABG HCO3 18.7 L ABG O2 Saturation 99.6 H ABG Base Excess -2.9 L ABG Hemoglobin 9.4 L Sodium Potassium Chloride Carbon Dioxide BUN Creatinine Glucose POC Glucose Lactic Acid Calcium AST Lactate Dehydrogenase Total Creatine Kinase 1396 H Troponin T Albumin LDL Cholesterol Direct HDL Cholesterol PTH Intact Urine WBC (Auto) Salicylates Acetaminophen 5.0 L 05/25/21 05/25/21 05/25/21 02:20 04:38 04:38 WBC 12.6 H Hgb 11.2 L Hct MCV MCHC 31 L RDW Plt Count 112 L Lymph % (Auto) Lymph # (Auto) Seg Neutrophils % Seg Neuts % (Manual) 92.0 H Lymphocytes % (Manual) 6.0 L Seg Neutrophils # Seg Neutrophils # Man 11.6 H Lymphocytes # (Manual) 0.8 L PT 15.7 H APTT D-Dimer ABG pH ABG pO2 ABG HCO3 ABG O2 Saturation ABG Base Excess ABG Hemoglobin Sodium Potassium Chloride Carbon Dioxide BUN Creatinine Glucose POC Glucose Lactic Acid Calcium AST Lactate Dehydrogenase Total Creatine Kinase Troponin T Albumin LDL Cholesterol Direct HDL Cholesterol PTH Intact Urine WBC (Auto) 75.0 H Salicylates Acetaminophen 05/25/21 05/25/21 05/25/21 04:38 04:38 05:50 WBC Hgb Hct MCV MCHC RDW Plt Count Lymph % (Auto) Lymph # (Auto) Seg Neutrophils % Seg Neuts % (Manual) Lymphocytes % (Manual) Seg Neutrophils # Seg Neutrophils # Man Lymphocytes # (Manual) PT APTT D-Dimer ABG pH ABG pO2 128.1 H ABG HCO3 ABG O2 Saturation ABG Base Excess -2.3 L ABG Hemoglobin Sodium 162 H* Potassium Chloride 128.6 H Carbon Dioxide BUN 109 H Creatinine 4.1 H Glucose 131 H POC Glucose Lactic Acid Calcium AST Lactate Dehydrogenase Total Creatine Kinase 936 H Troponin T Albumin LDL Cholesterol Direct HDL Cholesterol PTH Intact Urine WBC (Auto) Salicylates Acetaminophen 05/25/21 05/25/21 11:41 Unknown WBC Hgb Hct MCV MCHC RDW Plt Count Lymph % (Auto) Lymph # (Auto) Seg Neutrophils % Seg Neuts % (Manual) Lymphocytes % (Manual) Seg Neutrophils # Seg Neutrophils # Man Lymphocytes # (Manual) PT APTT D-Dimer ABG pH ABG pO2 ABG HCO3 ABG O2 Saturation ABG Base Excess ABG Hemoglobin Sodium Potassium Chloride Carbon Dioxide BUN Creatinine Glucose POC Glucose 62 L Lactic Acid Calcium AST Lactate Dehydrogenase Total Creatine Kinase Troponin T Albumin LDL Cholesterol Direct HDL Cholesterol PTH Intact 279.6 H Urine WBC (Auto) Salicylates Acetaminophen
--- NOTE | 2021-05-25 17:14 | Vascular Lab Report ---
DUPLEX DOPPLER LOWER EXTREMITY VEINS, BILATERAL INDICATION / CLINICAL INFORMATION: R/O DVT. Respiratory failure, sirs, UTI, acute encephalopathy, dem entia TECHNIQUE: Duplex doppler imaging was performed through the veins of both lower extremities using roberto ous compression and other maneuvers. COMPARISON: None available. FINDINGS: RIGHT COMMON FEMORAL VEIN: Negative. RIGHT FEMORAL VEIN: Negative. RIGHT POPLITEAL VEIN: Negative. RIGHT CALF VEINS: Negative. LEFT COMMON FEMORAL VEIN: Negative. LEFT FEMORAL VEIN: Negative. LEFT POPLITEAL VEIN: Negative. LEFT CALF VEINS: Negative. ADDITIONAL FINDINGS: None. IMPRESSION: 1. No sonographic evidence for DVT in either lower extremity. Signer Name: Joesph Martin MD Signed: 05/25/2021 5:10 PM Workstation Name: [id number]
[2021-05-25] MEDS ORDERED: DEXTROSE 50% IN WATER (25GM) 50 ML SYRINGE IV PRN (17:34)
--- NOTE | 2021-05-25 17:43 | Electrocardiograph Report ---
[facility] Test Date: 2021-05-24 Test Time: 21:33:45 Pat Name: ASHLEY PAREDES Department: Room: A262 1 Gender: M Quantitative Consultant: TY : 1940 Requested By: GISSELLE ZARATE Order Number: [id number] Reading MD: Cullen Ly Measurements Intervals [place] Rate: 95 P: 82 VA: 109 QRS: 69 QRSD: 81 T: 239 QT: 384 QTc: 482 Interpretive Statements Sinus rhythm Atrial premature complex Consider Fkmvt-Pblhvoncv-Ojjhv syndrome Nonspecific ST and T wave abnormality No previous ECG available for comparison Electronically Signed On 05-25-2021 17:42:56 EDT by Cullen Ly
[2021-05-25] MEDS: FREE WATER PO SCH (21:38)
[2021-05-25] MEDS ORDERED: cefTRIAXone/NS 2 GM/100 ML 2 GM/100 ML BAG IV SCH (22:00)
[2021-05-25] MEDS ORDERED: FAMOTIDINE 20 MG/2 ML INJ IV SCH (22:00)
[2021-05-26] MEDS: FREE WATER PO SCH ×3 (00:09→03:38)
[2021-05-26] MEDS: D5W/0.45% NACL 1,000 ML IV SCH ×2 (00:10→08:26)
--- NOTE | 2021-05-26 03:03 | XRay Report ---
CHEST 1 VIEW 05/26/2021 1:52 AM INDICATION / CLINICAL INFORMATION: follow up respiratory failure. COMPARISON: 05/24/2021 FINDINGS: SUPPORT DEVICES: NG tube extends within the stomach HEART / MEDIASTINUM: No significant abnormality. LUNGS / PLEURA: Mild right midlung atelectasis/density No pneumothorax. Signer Name: Ravindra Cho MD Signed: 05/26/2021 2:59 AM Workstation Name: [id number]
--- NOTE | 2021-05-26 03:16 | Consultation ---
DATE OF CONSULTATION: 05/25/2021 PULMONARY AND CRITICAL CARE CONSULTATION CONSULTING PHYSICIANS: Dr. Rich Hess, Emergency Room physician. REASON FOR CONSULTATION: Acute respiratory failure, on mechanical ventilatory support, acute toxic metabolic encephalopathy. CHIEF COMPLAINT AND HISTORY OF PRESENT ILLNESS: The patient is a now 80-year-old gentleman, retirement patient, past medical history as far as I can tell, significant for a diagnosis of hypertension and Lewy body dementia, who was brought into the Emergency Room yesterday with altered mental status and shortness of breath. EMS gave the history. He had recently been diagnosed with urinary tract infection at the retirement. In the Emergency Room, he was not protecting his airway and so he was intubated by the Emergency Room physician. Workup in the Emergency Room was consistent with possible sepsis. He had severe hypernatremia with a sodium of 163, mild hyperkalemia, and evidence of rhabdomyolysis with a serum creatinine of 4.6, but also a serum creatine kinase of 1396. He was intubated. A CT of the head was negative and we are asked to assist with management. When I stopped by to see him, he remained on PRVC, AC; tidal volume 415, sed rate of 16, PEEP of 6 on 30% FiO2. I do not have any history of vomiting or overt aspiration. The patient's tobacco use/abuse history is unclear acutely and remotely. The above is as much of the history of presentation as I have. PAST MEDICAL HISTORY: Hypertension, Lewy body dementia, coronary artery disease, and recent urinary tract infection. PAST SURGICAL HISTORY: Unknown. MEDICATIONS: He was on at the time I stopped by to see him, according to the medication administration record included the following: Tylenol 650 mg per rectum q. 6 hours p.r.n. mild pain or fevers, Rocephin 2 grams IV daily, D5 half NS was going at 125 mL per hour, Pepcid 20 mg IV daily, fentanyl drip was going at 1 mcg per kilogram per hour, heparin 5000 units subQ q. 8 hours, Versed drip was going at 2 mg per hour, morphine sulfate 2 mg IV q. 4 hours p.r.n. moderate pain and 4 mg IV q. 4 hours p.r.n. severe pain, Zofran 4 mg IV q. 8 hours p.r.n. nausea and vomiting, senna, docusate 1 tablet via feeding tube b.i.d. ALLERGIES: No known drug allergies. DIET: Thin, chronically ill-looking gentleman, acute weight loss or gain history is unknown. FAMILY AND SOCIAL HISTORY: penitentiary resident. Does not appear to be a current alcohol, tobacco, or illicit drug use or abuse. Remote history is unknown. FAMILY HISTORY: Otherwise unknown. REVIEW OF SYSTEMS: Unobtainable secondary to the patient's medical and mental condition. Since he has been here, no gross hematochezia or melena, no gross hematuria, no hematemesis, no bloody tracheal secretions, no witnessed seizures. Review of systems otherwise unobtainable or as in body of history above. PHYSICAL EXAMINATION: VITAL SIGNS: At presentation, he was afebrile, temperature 96.7 degrees Fahrenheit, pulse of 89, respiratory rate of 17, blood pressure 102/70, O2 sats was 76%, inspired oxygen concentration at that time was not recorded, O2 sats were 100% at the time I saw him on the above-mentioned vent settings. GENERAL: Again, elderly, chronically ill-looking gentleman on the mechanical ventilator without significant patient-ventilator dyssynchrony. HEAD, EYES, EARS, NOSE, AND THROAT: Anicteric. No conjunctival erythema. Oropharynx was moist. Endotracheal tube was taped at the lips around 24 cm. No gross jugular venous distention, no thyromegaly. Grossly, there were no palpable lymph nodes in the supraclavicular or submandibular lymph node chains. LUNGS: Auscultation of both lung miranda unremarkable. Apart for diminished bilateral air movement, the lungs were clear. HEART: Sounds 1 and 2 are heard. There were regular rate and rhythm at the time of my evaluation without overt rubs or murmurs. ABDOMEN: Soft, flat, bowel sounds are positive, nontender, no palpable hepatosplenomegaly. EXTREMITIES: Without overt digital clubbing or cyanosis. No pedal edema. Pedal pulses were 2+ bilaterally. NEUROLOGIC: Pupils were equal, round, about 3 mm, reactive to light. Extraocular muscle movements could not be assessed. He had some spontaneous movements to his extremities, but again he was sedated. SKIN: Normal turgor in the areas I examined without overt cellulitis or rash. Please see the wound care nurses' and registered nurse's notes for full description of his skin. PSYCHIATRIC: Mood and affect could not be assessed. He was sedated. LABORATORY DATA: From my review are as follows: Admission white cell count 12,400, hemoglobin 13.9, hematocrit 46.1, platelet count 123. No band forms on the manual differential. INR within normal limits. D-dimer was elevated at 2505. Arterial blood gas at that time showed a pH of 7.53, pCO2 of 23, pO2 of 438 and 100% FiO2. This morning, the pH is 7.45 with a pCO2 of 30, pO2 of 128 on 30% FiO2. Serum sodium yesterday was 167, potassium 5.3, chloride 131, bicarbonate 19, BUN 121, creatinine 4.6, glucose was 109. Lactic acid level was 3.9. Ferritin within normal limits. AST up at 52, otherwise liver function tests essentially within normal limits. Ammonia within normal limits. Creatine kinase 1396. Troponin elevated at 0.199. CRP within normal limits. Cholesterol LDL 41. Procalcitonin 0.11. TSH within normal limits. Urinalysis; large leukocyte esterase, 7-5 white cells per high power field. Aspirin, Tylenol, and alcohol levels were within expected limits. Coronavirus PCR has come back negative. Two sets of blood cultures, no growth to date. A chest x-ray unremarkable. CT was done of the head. It was read as a limited exam due to movement, diffuse cerebral atrophy, no acute process. A CT of the chest was also done. I have reviewed the CT. It was a regular noncontrast CT. The lung windows really unremarkable, some artifact around the fissure on the right, major fissure/mild atelectasis. No gross pneumothorax or other bony fracture. ASSESSMENT: 1. Acute toxic metabolic encephalopathy. 2. Acute hypoxemic respiratory failure. 3. Urinary tract infection. 4. Acute kidney injury. 5. Dehydration. 6. Possible rhabdomyolysis. 7. Systemic inflammatory response syndrome. 8. History of dementia. 9. Leukocytosis. 10. Thrombocytopenia. 11. Metabolic acidosis. 12. Hypernatremia. 13. Elevated serum troponins. PLAN: I have been told by nursing staff and the nurse practitioner that the patient's family mentioned that he should actually have been a do not resuscitate patient. They are coming by to see the patient and may be considering hospice care. I will defer this decision to them. In the meantime, a bedside spontaneous weaning trial was unsuccessful due to apneas. I have told him to hold all sedation as part of the daily sedation assessment trials. Oxygen will be weaned to keep sats greater than or equal to about 90%. We will drop the sat rate to 12 per minute and repeat an arterial blood gas at about 9:00 p.m. tonight. Spontaneous breathing trials will be tried as tolerated daily. Ventilator-associated pneumonia bundle has been introduced. He will continue bronchodilators with routine pulmonary hygiene per the therapist. Bronchodilators will be p.r.n. He is appropriately on Rocephin for the urinary tract infection. We will follow cultures and sensitivities. We will continue hydration. I will defer to the trace evidence technician at this point. Azotemia is improving. Hypernatremia is improving. He is receiving hypotonic fluids. I will continue the heparin while keeping a close eye on his platelet count and if there is a significant drop from baseline, I will be switching him off to non-heparinoid for DVT prophylaxis. Enteral nutrition will be the feeding modality of choice. Glycemic control will be for target blood glucose of 140-180 mg/dL while critically ill. I will defer an acute coronary syndrome workup to the attending and fitter/welder if consulted. Electrolytes will be followed and corrected as necessary. He is appropriately on GI prophylaxis as well as DVT prophylaxis. Flu and pneumonia vaccination will be addressed per protocol. Thank you very much for the consult, Dr. Hess and Dr. Soliman. We will follow along and make further recommendations as picture progresses/becomes clearer. He is critically ill on life-sustaining interventions including mechanical ventilatory support. At this time, I spent about 35-40 minutes of critical care time without overlap and excluding any procedural time that may be necessary. TID: [id number] RECEIPT: [id number] JAMES/KATYA/ALBINO
[2021-05-26 05:38] LABS: Hematocrit 36.2 % (35.5-45.6); Hemoglobin 11.3 gm/dl (11.8-15.2); Mean Corpuscular HGB Conc 31 % (32-34); Mean Corpuscular Volume 93 fl (84-94); Red Blood Count 3.88 M/mm3 (3.65-5.03); Red Cell Distribution Width 15.4 % (13.2-15.2)
[2021-05-26 05:42] LABS: Calcium 9.6 mg/dL (8.4-10.2)
[2021-05-26 05:51] LABS: Platelet Count 98 K/mm3 (140-440)
--- NOTE | 2021-05-26 09:39 | Progress Note ---
Assessment and Plan # Acute Kidney Injury: unknown baseline, likely pre-renal with tubular injury, rhabdomyolysis - continue IVF-> D5 + 1/2NS to encourage free water and renal perfusion; creatinine is downtrending 4.6->4.1->3.6 - renal imaging- reviewed CT chest, shows renal cysts, likely acquired, no acute abnormalities - PTH high at 276, likely with CKD at baseline, no need for vitamin D analog currently, Ca/P reasonable - urinalysis reviewed - defer serologies, biopsy given less likelihood of glomerular disease, age/co- morbidities - avoid nephrotoxins - I/Os - no immediate need for HD # Hypernatremia: likely from poor thirst, free water deficit. IVF as above, sodium improving 162->154 # Encephalopathy: likely multifactorial, do suspect dehydration # Respiratory Failure: ICU management of vent appreciated # Rhabdomyolysis: CK mildly elevated, improving with IVF Subjective Date of service: 05/26/21 Interval history: No acute changes noted, remains on vent with FiO2 30%, running on D5 1/2NS at 125cc/hr Objective - Exam Narrative Exam: Constitutional: intubated, sedated Head: NC/AT Neck: supple Lungs: mechanical lung sounds CV: RRR, no M/R/G Abdomen: soft, non-tender, bowel sounds present Back: nontender Extremities: no edema, pulses WNL Skin: intact Neuro: sedated - Vital Signs Vital signs: Vital Signs - 12hr 05/25/21 05/25/21 05/25/21 21:56 22:01 22:09 Temperature Pulse Rate 82 82 75 Pulse Rate [ From Monitor] Respiratory 12 12 11 L Rate Blood Pressure 148/85 151/85 151/85 O2 Sat by Pulse 97 97 100 Oximetry 05/25/21 05/25/21 05/25/21 22:31 23:00 23:31 Temperature Pulse Rate 84 84 84 Pulse Rate [ From Monitor] Respiratory 13 16 14 Rate Blood Pressure 156/79 146/77 139/75 O2 Sat by Pulse 100 100 100 Oximetry 05/26/21 05/26/21 05/26/21 00:00 00:01 00:30 Temperature Pulse Rate 84 82 Pulse Rate [ 72 From Monitor] Respiratory 17 11 L Rate Blood Pressure 146/78 159/78 O2 Sat by Pulse 100 100 100 Oximetry 05/26/21 05/26/21 05/26/21 01:01 01:31 02:00 Temperature Pulse Rate 82 83 84 Pulse Rate [ From Monitor] Respiratory 14 14 15 Rate Blood Pressure 137/68 149/67 134/78 O2 Sat by Pulse 100 100 100 Oximetry 05/26/21 05/26/21 05/26/21 02:31 03:01 03:31 Temperature Pulse Rate 83 80 82 Pulse Rate [ From Monitor] Respiratory 14 13 15 Rate Blood Pressure 144/78 139/76 154/79 O2 Sat by Pulse 100 100 100 Oximetry 05/26/21 05/26/21 05/26/21 04:00 04:01 04:31 Temperature 99.7 F H Pulse Rate 86 82 85 Pulse Rate [ 72 From Monitor] Respiratory 15 15 Rate Blood Pressure 145/71 132/76 151/78 O2 Sat by Pulse 100 100 100 Oximetry 05/26/21 05/26/21 05/26/21 05:01 05:31 06:00 Temperature Pulse Rate 85 87 88 Pulse Rate [ From Monitor] Respiratory 15 18 19 Rate Blood Pressure 151/73 115/82 150/77 O2 Sat by Pulse 100 100 100 Oximetry 05/26/21 05/26/21 05/26/21 06:30 07:00 07:30 Temperature 99.7 F H Pulse Rate 84 83 85 Pulse Rate [ From Monitor] Respiratory 16 15 17 Rate Blood Pressure 146/74 145/76 151/77 O2 Sat by Pulse 91 84 87 Oximetry 05/26/21 05/26/21 05/26/21 07:55 08:00 08:01 Temperature Pulse Rate 121 H 119 H 105 H Pulse Rate [ 85 From Monitor] Respiratory 18 Rate Blood Pressure 154/86 154/79 O2 Sat by Pulse 100 98 100 Oximetry - Lab 05/26/21 05:04 05/26/21 05:04 Most recent lab results ABG pH 7.362 (7.320-7.450) 05/25/21 21:41 ABG pCO2 30.1 mm Hg 05/25/21 05:50 ABG pO2 128.1 mm Hg (80.0-90.0) H 05/25/21 05:50 ABG HCO3 20.2 mmol/L (20.0-26.0) 05/25/21 05:50 ABG O2 Saturation 98.6 (0-100) 05/25/21 21:41 Calcium 9.6 mg/dL (8.4-10.2) 05/26/21 05:04 Phosphorus 3.10 mg/dL (2.5-4.5) 05/26/21 05:04 Magnesium 2.40 mg/dL (1.7-2.3) H 05/26/21 05:04 Medications & Allergies - Medications Allergies/Adverse Reactions: Allergies No Known Allergies Allergy (Verified 05/24/21 21:45) Home Medications: Home Medications Medication Instructions Recorded Confirmed Last Taken Type Aspirin EC [Halfprin EC] 81 mg PO QDAY 05/25/21 05/25/21 Unknown History Atorvastatin Calcium [Lipitor] 80 mg PO HS 05/25/21 05/25/21 Unknown History Cholecalciferol Vit D3 [Vitamin D3 1,000 unit PO QDAY 05/25/21 05/25/21 Unknown History 1,000 UNIT TAB] Citalopram Hydrobromide [celeXA] 10 mg PO DAILY 05/25/21 05/25/21 Unknown History Clopidogrel [Plavix] 75 mg PO QDAY 05/25/21 05/25/21 Unknown History Cyanocobalamin [Vitamin B-12] 1,000 mcg PO DAILY 05/25/21 05/25/21 Unknown History Docusate Sodium [Dok] 100 mg PO BID 05/25/21 05/25/21 Unknown History Fluticasone Propionate [Flovent 2 sprays IH DAILY 05/25/21 05/25/21 Unknown History Diskus] Isosorbide Mononitrate [Isosorbide 90 mg PO QAM 05/25/21 05/25/21 Unknown History Mononitrate ER] Loratadine [Allergy Relief] 10 mg PO DAILY PRN 05/25/21 05/25/21 Unknown History Losartan [Cozaar] 50 mg PO DAILY 05/25/21 05/25/21 Unknown History Melatonin 3 mg PO HS PRN 05/25/21 05/25/21 Unknown History Metoprolol Succinate [Toprol Xl] 12.5 mg PO DAILY 05/25/21 05/25/21 Unknown History OLANZapine [Zyprexa] 5 mg PO Q6H PRN 05/25/21 05/25/21 Unknown History allopurinoL [Zyloprim] 100 mg PO QDAY 05/25/21 05/25/21 Unknown History polyethylene glycoL 3350 [Miralax 17 gm PO DAILY PRN 05/25/21 05/25/21 Unknown History 3350] Active Medications: Generic Name Dose Route Start Last Admin Trade Name Freq PRN Reason Stop Dose Admin Acetaminophen 650 mg 05/24/21 23:27 Acetaminophen 650 Mg Rect Supp NV Q6H PRN Pain MILD(1-3)/Fever >100.5/VALADEZ Lipase/Protease/Amylase 1 each 05/25/21 10:40 Lipase 10,500/Protease 25,000/Amylase 43,750 (Units) Dr Cap FEEDTUBE PRN PRN For Clogged Feeding Tube Dextrose 50 ml 05/25/21 17:34 Dextrose 50% In Water (25gm) 50 Ml Syringe IV Q30MIN PRN Hypoglycemia Protocol Famotidine 20 mg 05/25/21 22:00 05/25/21 21:38 Famotidine 20 Mg/2 Ml Inj IV 20 mg DAILY@2200 PABLO Administration Fentanyl 50 mcg 05/24/21 21:28 Fentanyl 100 Mcg/2 Ml Inj IV Q10MIN PRN ANALGESIA Heparin Sodium (Porcine) 5,000 unit 05/25/21 06:00 05/25/21 21:37 Heparin 5,000 Unit/1 Ml Vial SUB-Q 5,000 unit Q8HR PABLO Administration Hydrophilic Ointment 1 applic 05/24/21 21:28 Lip Therapy Vaseline TP Q2HR PRN Dry Lips Fentanyl Citrate 2,000 mcg in 100 mls @ 2.25 mls/hr 05/24/21 22:00 05/25/21 04:34 Fentanyl Drip Premix IV 1 mcg/kg/hr TITR PABLO 2.25 mls/hr Titration Protocol 1 MCG/KG/HR Midazolam HCl 100 mg/ Sodium 100 mls @ 2 mls/hr 05/24/21 22:00 05/25/21 04:32 Chloride IV 1 mg/hr TITR PABLO 1 mls/hr Titration Protocol 2 MG/HR Ceftriaxone Sodium 2 gm in 100 mls @ 200 mls/hr 05/25/21 22:00 05/25/21 21:38 Rocephin/Ns 2 Gm/100 Ml IV 200 mls/hr Q24H PABLO Administration Protocol Dextrose/Sodium Chloride 1,000 mls @ 125 mls/hr 05/25/21 13:00 05/26/21 08:26 D5/0.45ns IV 125 mls/hr DIRECT PABLO Administration Magnesium Hydroxide 30 ml 05/24/21 23:27 Magnesium Hydroxide (Mom) Oral Liqd Udc PO Q4H PRN Constipation Midazolam HCl 2 mg 05/24/21 21:28 Midazolam 2 Mg/2 Ml Inj IV Q10MIN PRN Sedation Morphine Sulfate 2 mg 05/24/21 23:27 Morphine 2 Mg/1 Ml Inj IV Q4H PRN Pain, Moderate (4-6) Morphine Sulfate 4 mg 05/24/21 23:27 05/26/21 08:26 Morphine 4 Mg/1 Ml Inj IV 4 mg Q4H PRN Administration Pain , Severe (7-10) Multi-Ingred Cream/Lotion/Oil/Oint 1 applic 05/24/21 21:28 Mineral Oil/Petrolatum, White Ophth Oint 3.5 Gm OU Q4HR PRN Dry Eye(s) Ondansetron HCl 4 mg 05/24/21 23:27 Ondansetron 4 Mg/2 Ml Inj IV Q8H PRN Nausea And Vomiting Senna/Docusate Sodium 1 tab 05/24/21 22:00 05/25/21 22:00 Sennosides/Docusate Sodium 8.6/50 Mg Tab FEEDTUBE 1 tab BID PABLO Administration Simple Syrup 15 ml 05/25/21 10:40 Simple Syrup 15 Ml FEEDTUBE PRN PRN Hypoglycemia Simple Syrup 30 ml 05/25/21 10:40 Simple Syrup 15 Ml FEEDTUBE PRN PRN Hypoglycemia Sodium Bicarbonate 325 mg 05/25/21 10:40 Sodium Bicarbonate 325 Mg Tab FEEDTUBE PRN PRN For Clogged Feeding Tube Sodium Chloride 10 ml 05/25/21 10:00 05/25/21 21:38 Sodium Chloride 0.9% 10 Ml Flush Syringe IV 10 ml BID PABLO Administration Sodium Chloride 10 ml 05/24/21 23:27 Sodium Chloride 0.9% 10 Ml Flush Syringe IV PRN PRN LINE FLUSH
[2021-05-26] MEDS: SENNOSIDES/DOCUSATE SODIUM 8.6/50 MG TAB FEEDTUBE SCH (10:11)
--- NOTE | 2021-05-26 13:14 | Ultrasound Report ---
ULTRASOUND RENAL INDICATION / CLINICAL INFORMATION: RENAL INSUFFICIENCY. COMPARISON: None available. FINDINGS: RIGHT KIDNEY: Size (in cm): 13.5 - Echogenicity: Increased - Cortical Thickness: Mild cortical thinning. - Hydronephrosis: None. - Cyst or mass: Multiple renal cysts, largest located at the upper pole measuring 4.7 cm. - Stones: 1.2 cm calcification at the lower pole of the right kidney may reflect renal stone or dystr ophic calcification. LEFT KIDNEY: Size (in cm): 10.4 - Echogenicity: Increased - Cortical Thickness: Borderline thinning. - Hydronephrosis: None. - Cyst or mass: 5.6 cm solid mass with internal vascularity at the lower pole. Multiple renal cysts are present. - Stones: None seen. URINARY BLADDER: Sanchez catheter decompresses the bladder. FREE FLUID: None. ADDITIONAL FINDINGS: None. IMPRESSION: 1. 5.6 cm solid mass at the lower pole of the left kidney. Recommend multiphasic CT for further evalu ation. 2. Diffuse increased renal cortical echogenicity with mild cortical thinning, right greater than left , most consistent with chronic medical renal disease. 3. Multiple bilateral renal cysts. Signer Name: Arik Harp MD Signed: 05/26/2021 1:10 PM Workstation Name: [id number]
[2021-05-26 14:29] VITALS: BP 140/71
--- NOTE | 2021-05-26 14:44 | Discharge Summary ---
<TRACI DOMINGUEZ - Last Filed: 05/26/21 14:40> Providers - Providers Date of Admission: 05/24/21 23:03 Date of discharge: 05/26/21 Attending physician: OCTAVIA MARTINI 05/24/21 21:28 Consult to Dietitian/Nutrition [CONS] Routine Physician Instructions: Reason For Exam: Reason for Consult: Evaluate nutritional intake Consult to Physician [CONS] Stat Comment: Consulting Provider: LONDON JUAREZ Physician Instructions: Reason For Exam: resp failure 05/24/21 22:38 Consult to Physician [CONS] Urgent Comment: Consulting Provider: CIELO HUERTA Physician Instructions: Reason For Exam: Hypernatremia, renal insufficiency Primary care physician: FIELD MECHANIC/SITE LEAD Hospitalization Reason for admission: AMS Condition: Critical Hospital course: This is a 80-year-old AA male with a PmHx of Lewy body dementia, CVA, CKD, CAD, PAD, DM, HTN, HLD, and BPH who [facility] was brought into the emergency room by EMS for changes in mental status and respiratory failure. Upon his arrival in the ED patient was unresponsive and was intubated for airway protection. Patient was transferred to the ICU for further management. Hospital Course to Dates: 05/25/21- Patient is intubated and sedated on versed and propofol RASS -3, wean off sedation for SAT trial. Hypernatremia noted IVF per Nephro, FWF added. F/u lactic, trop, and EKG in the am. Continue to monitor renal function and electrolytes, am labs ordered. 05/26/21- Plan to transfer to inpatient hospice today Assessment and Plan: #Neuro: Acute Metabolic Encephalopathy #H/o Lewy body dementia #H/o CVA - Patient is intubated and sedated o n fentanyl and versed - Titrate sedation for RASS goal 0 to -2 - 05/24 CT head w/o- Chronic small vessel disease however underlying ischemia cannot be exclude - Neurology consulted - Daily SAT and SBT per CCM - Avoid benzodiazepine's, reduce the possibility of delirium - Prn analgesia for CPOT greater than 3 - Maintenance of sleep-wake cycle, avoid delirium #CV:#Elevated troponin # Elevated CK #H/o HTN, HLD - Initial EKG with no ST changes - Most likely due to CKD - Patient is normotensive, NSR on monitor - Maintain adequate perfusion - Continue rehydration with cont. IVF - Continue blood pressure monitor per protocol - Maintain MAP above 65 - will restart home meds - elevated DDimer- 05/25 BLE doppler neg for DVT - Continue AC- Hep SubQ and SCDs for VTE proph - Repeat EKG in the am - Repeat Trop with am lab #Acute Respiratory Failure #Pulmonary Cysts - 05/24 CXR with no acute findings - 05/24 CT chest shows pulmonary cysts. but with no acute changed - Patient intubated in the ED for airway protection - Vent setting: PRVC- 30%,6,16,400 - This AM ABG noted- Vent changes per CCM - Continue SPO2 monitoring for SPO2 goal above 92% - Daily SAT and SBT trial - Daily ABGs and CXR - Aspiration precaution, HOB above 30 - Covid swab pending - CCM on consult #GI:NAP - Keep patient NPO for now - BR added - continue PPI- Pepcid #: Acute on Chronic Kidney Injury #Hypernatremia #Hyperkalemia- resolved #Cholelithiasis #Renal Cysts - Unknown of patient baseline - Initial Cr. 4.6-->4.1 this am - CT chest reveals multiples renal cysts of various sizes and Cholelithiasis - Nephrology on consult, appreciate recommendations - Sanchez in place, low urine output - Strict intake and output - Avoid nephrotoxic medications; Renally dose medications - Continue IVF per Nephro - FWF added - Monitor and replace electrolytes as needed - No immediate need for HD at this time per Nephro #ID: Metabolic Acidosis #Lactic Acidosis #Leukocytosis - Lactic 3.9 - Mild leukocytosis, WBCs 12.6 this am - Patient is afebrile - Blood culture X2 pending; UA is unremarkable - Continue IVF - Continue IV Abx- Rocephin for now - Trend lactic acid and Leukocytosis - Continue to F/U on B.cult - Daily CBC monitor - Consider ID consult if febrile or/and leukocytosis persists #Endo: Hypoglycemia #H/o DM - On Hypoglycemic protocol - Continue IVF D51/2NS - Point of care accucheck Q6hrs - Avoid hypoglycemia Disposition: 51 HOSPICE[facility]MEDICAL FACILITY Final Discharge Diagnosis (Prints w/discharge instructions): Acute Respiratory Failure Time spent for discharge: 35 Core Measure Documentation - Palliative Care Palliative Care/ Comfort Measures: Hospice Care - Core Measures Any of the following diagnoses?: none Exam - Constitutional Vitals: Temp Pulse Resp BP Pulse Ox 99.9 F H 82 12 140/71 100 05/26/21 12:00 05/26/21 14:00 05/26/21 14:00 05/26/21 14:00 05/26/21 14:00 General appearance: Present: no acute distress - EENT Eyes: Present: PERRL - Neck Neck: Present: normal ROM - Respiratory Respiratory effort: normal Respiratory: bilateral: diminished - Cardiovascular Rhythm: regular Heart Sounds: Present: S1 & S2 - Extremities Extremities: no ischemia, pulses intact, pulses symmetrical Extremity abnormal: edema - Peripheral Assessment Generalized Edema Type: Non-pitting Edema Degree: 1+ Capillary Refill: < 3 seconds Skin Temperature: Warm Peripheral Pulses: within normal limits - Abdominal General gastrointestinal: Present: soft, non-tender, normal bowel sounds Male genitourinary: Present: normal - Rectal Rectal Exam: deferred - Integumentary Integumentary: Present: clear, warm, dry - Musculoskeletal Musculoskeletal: generalized weakness - Psychiatric Psychiatric: other (OSMAR) - Neurologic Neurologic: other (Lethargic, withdraw from pain, not following commands) Plan Activity: fall precautions, other Weight Bearing Status: Weight Bear as Tolerated Diet: other (TF) Wound: open to air Special Instructions: other (Per Hospice facility) Follow up with: PRIMARY CARE, [Primary Care Provider] - 3-5 Days <OCTAVIA MARTINI - Last Filed: 05/27/21 07:48> Providers - Providers Date of Admission: 05/24/21 23:03 Attending physician: OCTAVIA MARTINI 05/24/21 21:28 Consult to Dietitian/Nutrition [CONS] Routine Physician Instructions: Reason For Exam: Reason for Consult: Evaluate nutritional intake Consult to Physician [CONS] Stat Comment: Consulting Provider: LONDON JUAREZ Physician Instructions: Reason For Exam: resp failure 05/24/21 22:38 Consult to Physician [CONS] Urgent Comment: Consulting Provider: CIELO HUERTA Physician Instructions: Reason For Exam: Hypernatremia, renal insufficiency Primary care physician: FIELD MECHANIC/SITE LEAD Hospitalization Hospital course: I saw and evaluated the patient. I agree with the findings and the plan of care as documented in the Nurse Practitioner's~note, Exam - Constitutional Vitals: Temp Pulse Resp BP Pulse Ox 99.9 F H 81 12 140/71 100 05/26/21 12:00 05/26/21 15:55 05/26/21 14:00 05/26/21 14:00 05/26/21 15:55 General appearance: Present: other (Patient on mechanical ventilation) - Psychiatric Psychiatric: other - Neurologic Neurologic: other Plan Activity: up only with assistance Diet: other Wound: open to air Special Instructions: other Additional Instructions: Post discharge management to be provided by hospice
--- NOTE | 2021-05-26 15:18 | Progress Note ---
Assessment and Plan Acute toxic metabolic encephalopathy Acute hypoxemic respiratory failure NSTEMI Urinary tract infection Acute kidney injury Dehydration Possible rhabdomyolysis Systemic inflammatory response syndrome History of dementia Leukocytosis Thrombocytopenia Metabolic acidosis Hypernatremia - tentatively to transfer to hospice care - continue as below for now; - continue Daily SAT and SBT assessment as tolerated - continue to wean supplemental oxygen for target O2 sat's > 90% acutely - VAP bundle addressed - continue lung protective strategies - continue bronchodilators with pulmonary hygiene per RT - wean per pulmonary driven protocols otherwise - avoid nephrotoxins, renally dose all medications - continue accuchecks with glycemic control per SSI (While critically ill target blood glucose of 140-180 mg/dL; avoid hypoglycemia) - sedation prn for target RASS 0 to -1 - continue to avoid benzodiazepine's, reduce the possibility of delirium - AB's per ID rec's - prn analgesia per CPOT score - Maintenance of sleep-wake cycle, avoid delirium - continue enteral nutritional support at goal rate as tolerated - G.I. & VTE prophylaxis - PT/OT/ROM exercises - continue mobility protocols for pressure ulcer prophylaxis - Monitor hemodynamics closely - continue other care per attending / other consultants - discharge planning ongoing concurrently COVID SPECIFIC INTERVENTIONS - COVID-19 test negative .... Re-evaluate in am & prn CONDITION: CRITICAL PROGNOSIS: GUARDED CODE STATUS: FULL CODE The high probability of a clinically significant, sudden or life-threatening deterioration of the [respiratory, cardiovascular & neurologic] system(s) required my full and direct attention, intervention and personal management. The aggregate critical care time was [33] minutes without overlap. Time includes spent on; [x] Data Review and interpretation [x] Patient assessment and monitoring of vital signs [x] Documentation [x] Medication orders and management Subjective Date of service: 05/26/21 Principal diagnosis: Acute encephalopathy; Acute hypoxemic resp failure; ; BRITANY; UTI; NSTEMI Interval history: Patient is seen today for: Acute toxic metabolic encephalopathy; Acute hypoxemic respiratory failure; ; BRITANY; UTI; NSTEMI Seen and examined at bedside; 24hour events reviewed; nursing and respiratory care staff consulted; no adverse overnight events reported to me; resting in bed; remains on MVS; AMS is persistent; tolerated bedside SBT decently; NO N/V/F/C Objective Vital Signs - 12hr 05/26/21 05/26/21 05/26/21 03:31 04:00 04:01 Temperature 99.7 F H Pulse Rate 82 86 82 Pulse Rate [ 72 From Monitor] Respiratory 15 15 Rate Blood Pressure 154/79 145/71 132/76 O2 Sat by Pulse 100 100 100 Oximetry 05/26/21 05/26/21 05/26/21 04:31 05:01 05:31 Temperature Pulse Rate 85 85 87 Pulse Rate [ From Monitor] Respiratory 15 15 18 Rate Blood Pressure 151/78 151/73 115/82 O2 Sat by Pulse 100 100 100 Oximetry 05/26/21 05/26/21 05/26/21 06:00 06:30 07:00 Temperature 99.7 F H Pulse Rate 88 84 83 Pulse Rate [ From Monitor] Respiratory 19 16 15 Rate Blood Pressure 150/77 146/74 145/76 O2 Sat by Pulse 100 91 84 Oximetry 05/26/21 05/26/21 05/26/21 07:30 07:55 08:00 Temperature Pulse Rate 85 121 H 119 H Pulse Rate [ 85 From Monitor] Respiratory 17 Rate Blood Pressure 151/77 154/86 O2 Sat by Pulse 87 100 98 Oximetry 05/26/21 05/26/21 05/26/21 08:01 08:30 09:00 Temperature Pulse Rate 105 H 99 H 85 Pulse Rate [ From Monitor] Respiratory 18 12 16 Rate Blood Pressure 154/79 141/72 117/65 O2 Sat by Pulse 100 100 100 Oximetry 05/26/21 05/26/21 05/26/21 09:30 10:00 10:30 Temperature Pulse Rate 79 78 78 Pulse Rate [ From Monitor] Respiratory 13 14 14 Rate Blood Pressure 126/70 142/72 150/75 O2 Sat by Pulse 100 100 100 Oximetry 05/26/21 05/26/21 05/26/21 11:00 11:30 12:00 Temperature 99.9 F H Pulse Rate 80 81 81 Pulse Rate [ 80 From Monitor] Respiratory 13 13 13 Rate Blood Pressure 146/78 149/76 141/73 O2 Sat by Pulse 100 100 100 Oximetry 05/26/21 05/26/21 05/26/21 12:30 12:44 13:00 Temperature Pulse Rate 81 80 80 Pulse Rate [ From Monitor] Respiratory 13 12 Rate Blood Pressure 136/71 140/70 138/72 O2 Sat by Pulse 100 100 100 Oximetry 05/26/21 05/26/21 13:30 14:00 Temperature Pulse Rate 84 82 Pulse Rate [ From Monitor] Respiratory 12 12 Rate Blood Pressure 139/71 140/71 O2 Sat by Pulse 100 100 Oximetry Constitutional: no acute distress Eyes: non-icteric ENT: oropharynx moist, other (ETT 24 cm ESTEFANY) Neck: supple, no lymphadenopathy, no JVD Effort: mildly labored Ascultation: Bilateral: diminished breath sounds, rhonchi Percussion: Bilateral: not dull Cardiovascular: regular rate and rhythm Gastrointestinal: normoactive bowel sounds, soft, non-tender, non-distended Integumentary: normal Extremities: no cyanosis, no edema, pulses normal Neurologic: pupils equal and round, CN II-XII normal, unable to assess Psychiatric: other (unable to assess re: AMS / dementia) CBC and BMP: 05/26/21 05:04 05/26/21 05:04 ABG, PT/INR, D-dimer: ABG ABG pH 7.362 (7.320-7.450) 05/25/21 21:41 POC ABG pCO2 38.1 mmHg (32.0-48.0) 05/25/21 21:41 ABG pCO2 30.1 mm Hg 05/25/21 05:50 POC ABG pO2 132.7 mmHg (83-108) H 05/25/21 21:41 ABG pO2 128.1 mm Hg (80.0-90.0) H 05/25/21 05:50 POC ABG HCO3 21.1 05/25/21 21:41 ABG O2 Saturation 98.6 (0-100) 05/25/21 21:41 PT/INR, D-dimer PT 15.7 Sec. (12.2-14.9) H 05/25/21 04:38 INR 1.13 (0.87-1.13) 05/25/21 04:38 D-Dimer 2504.89 ng/mlDDU (0-234) H 05/24/21 21:37 Abnormal lab findings: Abnormal Labs 05/24/21 05/24/21 05/24/21 21:14 21:37 21:37 WBC 12.4 H Hgb Hct 46.1 H MCV 96 H MCHC 30 L RDW 15.4 H Plt Count 123 L Lymph % (Auto) 6.3 L Lymph # (Auto) 0.8 L Seg Neutrophils % 88.7 H Seg Neuts % (Manual) Lymphocytes % (Manual) Seg Neutrophils # 11.0 H Seg Neutrophils # Man Lymphocytes # (Manual) PT APTT 20.0 L D-Dimer 2504.89 H ABG pH POC ABG pO2 ABG pO2 ABG HCO3 ABG O2 Saturation ABG Base Excess ABG Hemoglobin ABG Sodium ABG Chloride ABG Glucose Carboxyhemoglobin Sodium Potassium Chloride Carbon Dioxide BUN Creatinine Glucose POC Glucose 109 H Lactic Acid Calcium Magnesium AST Lactate Dehydrogenase Total Creatine Kinase Troponin T Albumin LDL Cholesterol Direct HDL Cholesterol PTH Intact Arterial Blood Glucose Urine WBC (Auto) Salicylates Acetaminophen 05/24/21 05/24/21 05/24/21 21:37 21:37 21:37 WBC Hgb Hct MCV MCHC RDW Plt Count Lymph % (Auto) Lymph # (Auto) Seg Neutrophils % Seg Neuts % (Manual) Lymphocytes % (Manual) Seg Neutrophils # Seg Neutrophils # Man Lymphocytes # (Manual) PT APTT D-Dimer ABG pH POC ABG pO2 ABG pO2 ABG HCO3 ABG O2 Saturation ABG Base Excess ABG Hemoglobin ABG Sodium ABG Chloride ABG Glucose Carboxyhemoglobin Sodium 167 H* Potassium 5.3 H Chloride 130.9 H Carbon Dioxide 19 L BUN 121 H Creatinine 4.6 H Glucose 122 H POC Glucose Lactic Acid 3.90 H* Calcium 10.5 H Magnesium AST 52 H Lactate Dehydrogenase 275 H Total Creatine Kinase Troponin T 0.199 H* Albumin 3.2 L LDL Cholesterol Direct 41 L HDL Cholesterol 35 L PTH Intact Arterial Blood Glucose Urine WBC (Auto) Salicylates < 0.3 L Acetaminophen 05/24/21 05/24/21 05/25/21 21:37 21:37 02:13 WBC Hgb Hct MCV MCHC RDW Plt Count Lymph % (Auto) Lymph # (Auto) Seg Neutrophils % Seg Neuts % (Manual) Lymphocytes % (Manual) Seg Neutrophils # Seg Neutrophils # Man Lymphocytes # (Manual) PT APTT D-Dimer ABG pH 7.533 H POC ABG pO2 ABG pO2 438.0 H ABG HCO3 18.7 L ABG O2 Saturation 99.6 H ABG Base Excess -2.9 L ABG Hemoglobin 9.4 L ABG Sodium ABG Chloride ABG Glucose Carboxyhemoglobin Sodium Potassium Chloride Carbon Dioxide BUN Creatinine Glucose POC Glucose Lactic Acid Calcium Magnesium AST Lactate Dehydrogenase Total Creatine Kinase 1396 H Troponin T Albumin LDL Cholesterol Direct HDL Cholesterol PTH Intact Arterial Blood Glucose Urine WBC (Auto) Salicylates Acetaminophen 5.0 L 05/25/21 05/25/21 05/25/21 02:20 04:38 04:38 WBC 12.6 H Hgb 11.2 L Hct MCV MCHC 31 L RDW Plt Count 112 L Lymph % (Auto) Lymph # (Auto) Seg Neutrophils % Seg Neuts % (Manual) 92.0 H Lymphocytes % (Manual) 6.0 L Seg Neutrophils # Seg Neutrophils # Man 11.6 H Lymphocytes # (Manual) 0.8 L PT 15.7 H APTT D-Dimer ABG pH POC ABG pO2 ABG pO2 ABG HCO3 ABG O2 Saturation ABG Base Excess ABG Hemoglobin ABG Sodium ABG Chloride ABG Glucose Carboxyhemoglobin Sodium Potassium Chloride Carbon Dioxide BUN Creatinine Glucose POC Glucose Lactic Acid Calcium Magnesium AST Lactate Dehydrogenase Total Creatine Kinase Troponin T Albumin LDL Cholesterol Direct HDL Cholesterol PTH Intact Arterial Blood Glucose Urine WBC (Auto) 75.0 H Salicylates Acetaminophen 05/25/21 05/25/21 05/25/21 04:38 04:38 05:50 WBC Hgb Hct MCV MCHC RDW Plt Count Lymph % (Auto) Lymph # (Auto) Seg Neutrophils % Seg Neuts % (Manual) Lymphocytes % (Manual) Seg Neutrophils # Seg Neutrophils # Man Lymphocytes # (Manual) PT APTT D-Dimer ABG pH POC ABG pO2 ABG pO2 128.1 H ABG HCO3 ABG O2 Saturation ABG Base Excess -2.3 L ABG Hemoglobin ABG Sodium ABG Chloride ABG Glucose Carboxyhemoglobin Sodium 162 H* Potassium Chloride 128.6 H Carbon Dioxide BUN 109 H Creatinine 4.1 H Glucose 131 H POC Glucose Lactic Acid Calcium Magnesium AST Lactate Dehydrogenase Total Creatine Kinase 936 H Troponin T Albumin LDL Cholesterol Direct HDL Cholesterol PTH Intact Arterial Blood Glucose Urine WBC (Auto) Salicylates Acetaminophen 05/25/21 05/25/21 05/25/21 11:41 17:14 21:41 WBC Hgb Hct MCV MCHC RDW Plt Count Lymph % (Auto) Lymph # (Auto) Seg Neutrophils % Seg Neuts % (Manual) Lymphocytes % (Manual) Seg Neutrophils # Seg Neutrophils # Man Lymphocytes # (Manual) PT APTT D-Dimer ABG pH POC ABG pO2 132.7 H ABG pO2 ABG HCO3 ABG O2 Saturation ABG Base Excess ABG Hemoglobin 11.8 L ABG Sodium 153.8 H ABG Chloride 125.0 H ABG Glucose 119 H Carboxyhemoglobin 0.3 L Sodium Potassium Chloride Carbon Dioxide BUN Creatinine Glucose POC Glucose 62 L 69 L Lactic Acid Calcium Magnesium AST Lactate Dehydrogenase Total Creatine Kinase Troponin T Albumin LDL Cholesterol Direct HDL Cholesterol PTH Intact Arterial Blood Glucose 119 H Urine WBC (Auto) Salicylates Acetaminophen 05/25/21 05/26/21 05/26/21 Unknown 00:33 05:04 WBC Hgb Hct MCV MCHC RDW Plt Count Lymph % (Auto) Lymph # (Auto) Seg Neutrophils % Seg Neuts % (Manual) Lymphocytes % (Manual) Seg Neutrophils # Seg Neutrophils # Man Lymphocytes # (Manual) PT APTT D-Dimer ABG pH POC ABG pO2 ABG pO2 ABG HCO3 ABG O2 Saturation ABG Base Excess ABG Hemoglobin ABG Sodium ABG Chloride ABG Glucose Carboxyhemoglobin Sodium Potassium Chloride Carbon Dioxide BUN Creatinine Glucose POC Glucose 37 L Lactic Acid Calcium Magnesium 2.40 H AST Lactate Dehydrogenase Total Creatine Kinase Troponin T Albumin LDL Cholesterol Direct HDL Cholesterol PTH Intact 279.6 H Arterial Blood Glucose Urine WBC (Auto) Salicylates Acetaminophen 05/26/21 05/26/21 05/26/21 05:04 05:04 05:38 WBC 13.3 H Hgb 11.3 L Hct MCV MCHC 31 L RDW 15.4 H Plt Count 98 L Lymph % (Auto) Lymph # (Auto) Seg Neutrophils % Seg Neuts % (Manual) Lymphocytes % (Manual) Seg Neutrophils # Seg Neutrophils # Man Lymphocytes # (Manual) PT APTT D-Dimer ABG pH POC ABG pO2 ABG pO2 ABG HCO3 ABG O2 Saturation ABG Base Excess ABG Hemoglobin ABG Sodium ABG Chloride ABG Glucose Carboxyhemoglobin Sodium 154 H Potassium Chloride 122.1 H Carbon Dioxide 21 L BUN 95 H Creatinine 3.6 H Glucose 122 H POC Glucose 113 H Lactic Acid Calcium Magnesium AST Lactate Dehydrogenase Total Creatine Kinase Troponin T 0.167 H* Albumin LDL Cholesterol Direct HDL Cholesterol PTH Intact Arterial Blood Glucose Urine WBC (Auto) Salicylates Acetaminophen Chest x-ray: image reviewed (right mid-lung zones small volume atelectasis) Allied health notes reviewed: nursing
--- NOTE | 2021-05-27 14:11 | Electrocardiograph Report ---
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
== END 2021-05-26 16:00 | disposition hospice, inpatient (51) | DRG 208 ==
LOC: ED 21:09 → CC1 23:03
PROVIDERS: ADMIT Internal Medicine Geriatric Medicine; ATTEND Internal Medicine
PROC: 5A1945Z Respiratory Ventilation, 24-96 Consecutive Hours (ICD-10-PCS; principal; 2021-05-24)
PROC: 0BH17EZ Insertion of Endotracheal Airway into Trachea, Via Natural or Artificial Opening (ICD-10-PCS; 2021-05-24)
PROC: 4A033R1 Measurement of Arterial Saturation, Peripheral, Percutaneous Approach (ICD-10-PCS; 2021-05-25)
DX: J96.01 Acute respiratory failure with hypoxia (principal); G92.8 Other toxic encephalopathy; I21.4 Non-ST elevation (NSTEMI) myocardial infarction; E87.0 Hyperosmolality and hypernatremia; N17.0 Acute kidney failure with tubular necrosis; R65.10 Systemic inflammatory response syndrome (SIRS) of non-infectious origin without acute organ dysfunction; N39.0 Urinary tract infection, site not specified; E87.2 Acidosis; M62.82 Rhabdomyolysis; E86.0 Dehydration; Z20.822 Contact with and (suspected) exposure to COVID-19; F03.90 Unspecified dementia, unspecified severity, without behavioral disturbance, psychotic disturbance, mood disturbance, and anxiety; Z86.73 Personal history of transient ischemic attack (TIA), and cerebral infarction without residual deficits; E11.51 Type 2 diabetes mellitus with diabetic peripheral angiopathy without gangrene; N40.0 Benign prostatic hyperplasia without lower urinary tract symptoms; J98.4 Other disorders of lung; I12.9 Hypertensive chronic kidney disease with stage 1 through stage 4 chronic kidney disease, or unspecified chronic kidney disease; E11.22 Type 2 diabetes mellitus with diabetic chronic kidney disease; N18.9 Chronic kidney disease, unspecified; K80.20 Calculus of gallbladder without cholecystitis without obstruction; E11.649 Type 2 diabetes mellitus with hypoglycemia without coma
CPT/HCPCS: 36415; 36600; 70450; 71045; 71250; 76770; 80048; 80053; 80061; 80320; 81001; 82140; 82550; 82728; 82803; 82805; 82962; 83615; 83735; 83970; 84100; 84145; 84443; 84484; 85007; 85025; 85027; 85379; 85610; 85730; 86140; 86850; 86900; 86901; 87040; 87076; 87086; 87186; 93005; 93970; 94002; 94003; G0378; G0480; J0696; J1100; J1644; J2250; J2270; J3010; J7030; J7070; J7120; U0003